=== PATIENT | male | born 1960 | race Caucasian/White ===

== ENCOUNTER 2022-10-03 14:56 | Inpatient (IN) | payer MEDICAID, SELFPAY ==
[2022-10-03 14:56] VITALS: BP 118/89; PULSE 138; RESP 18; TEMP 36.5; O2SAT 95; BMI 20.2
[2022-10-03 17:02] VITALS: PULSE 136
[2022-10-03] MEDS: LORazepam 2 MG/ML Syringe IV (17:04)
--- NOTE | 2022-10-03 17:14 | EDS_ITS ---
HPI History of Present Illness Chief Complaint: Substance Abuse Narrative Narrative: 61-year-old male presenting for detox from alcohol. He states he drinks about 3-1/2 gallons of vodka per day. He lives in an assisted living facility and is able to get out by his own alcohol. Sometimes his friends bite. He states he does have history of bone cancer and he is withdrawn cancer treatments. He just wants detox from alcohol and wants to stop drinking. He feels he is withdrawing. Last drink was yesterday. Patient reports history of withdrawal seizures in the past. PFSH PFSH Medical History Alcohol abuse BPH (benign prostatic hyperplasia) Chronic pain syndrome HTN (hypertension) Metastatic cancer to bone Tobacco use Allergy/AdvReac Type Severity Reaction Status Date / Time banana AdvReac PT UNSURE Verified 10/03/22 14:59 OF REACTION cyclobenzaprine AdvReac PT UNSURE Verified 10/03/22 14:59 [From Flexeril] OF REACTION haloperidol [From Haldol] AdvReac PT UNSURE Verified 10/03/22 14:59 OF REACTION pecan nut [pecans] AdvReac PT UNSURE Verified 10/03/22 14:59 OF REACTION walnut [walnuts] AdvReac PT UNSURE Verified 10/03/22 14:59 OF REACTION Family History (Updated 10/03/22 @ 19:[address] Danitza Paz MD) Mother Cancer Father Cancer Surgical History (Updated 10/03/22 @ 19:[address] Danitza Paz MD) History of back surgery S/P partial colectomy Social History (Updated 10/03/22 @ 19:[address] Danitza Paz MD) housing: assisted living facility Smoking Status: Current every day smoker tobacco type: cigarettes how long ago did patient quit smoking: Smoked heavy in the past, now down to 1 cigarette every 3 days. alcohol intake: current alcohol intake frequency: 3 or more drinks per day details: 3.5 gall 21 proof vodka daily. substance use type: does not use ROS ROS ED Constitutional Constitutional ED: Denies chills or fever(s) Eyes Eyes: Denies change in vision ENT ENT ED: Denies rhinorrhea or sore throat Cardiovascular Cardiovascular: Reports palpitations and racing heartbeat Respiratory/Chest Respiratory/Chest: Denies cough or dyspnea Gastrointestinal Gastrointestinal: Reports nausea Genitourinary Genitourinary ED: Denies dysuria Musculoskeletal Musculoskeletal: Denies back pain Integumentary Denies abscess or Abrasions Neurologic Neurologic: Denies headache(s) Psychiatric Psychiatric: Reports anxiety EXAM Physical Exam Const Vital Signs: 10/03/22 14:56 10/03/22 17:02 10/03/22 17:55 Temperature 97.7 F L 97.7 F L Temperature Source Temporal Temporal Pulse Rate 138 H 136 H 137 H Respiratory Rate 18 19 H Blood Pressure 118/89 H 124/94 H Blood Pressure Mean 98 104 Pulse Ox 95 93 Oxygen Delivery Method Room Air Nasal Cannula Oxygen Flow Rate (L/min) 3 Positive well nourished General Appearance ED: NAD; Negative for pallor HEENT Reports moist mucous membranes atraumatic Eyes PERRL and EOMs intact bilaterally Lymph Lymphatic: no lymphadenopathy noted Chest Wall inspection of chest normal and palpation of chest normal Resp normal respiratory effort and clear to auscultation bilaterally Cardio regular rhythm Rate: tachycardic GI soft to palpation Neuro oriented x3 and CN's II-XII intact bilaterally Motor Exam: strength 5/5 throughout Psych mental status grossly normal Skin General Skin Exam: Negative for jaundice or pallor MDM MDM MDM Narrative Medical decision making narrative: 61-year-old male presenting for alcohol detox. He does admit to history of metastatic bone cancer and states he is put back on chemotherapy of care. He does not want any treatment for this. Patient states he drinks 3-1/2 gallons of vodka daily. He gets assistance from his friends but is able to also leave and get it from his assisted living facility. Last drink was yesterday. He does appear to be jittery and anxious. He is tachycardic at 138. Patient given 2 mg Ativan. blood work was obtained which shows a 20,000 white count. Hemoglobin and hematocrit are stable. Platelets are normal. CMP shows normal bilirubin, AST, ALT, alkaline phosphatase. Glucose 171 without anion gap. Slightly hypokalemic at 3.4. Sodium slightly low at 132 which is likely due to elevation in glucose. Patient was given a liter of normal saline. Patient discussed with hospitalist for admission. Patient has elevated white blood cell count. Urinalysis was ordered as well as chest x-ray. These are pending on admission. Hospitalist is aware and will follow up on these. Patient had episode of nausea vomiting and was given Zofran. Impression: 1. Leukocytosis 2. EtOH withdrawal 3. Nausea/vomiting Lab Data Attestation: I reviewed the patient's lab results. Labs: Laboratory Results - last 24 hr 10/03/22 10/03/22 10/03/22 17:05 17:05 17:05 WBC 20.0 H RBC 4.38 L Hgb 13.4 Hct 40.9 MCV 93.4 MCH 30.6 MCHC 32.8 RDW Std Deviation 46.6 H RDW Coeff of Franci 13.7 Plt Count 370 MPV 9.0 Immature Gran % (Auto) 0.700 Neut % (Auto) 91.7 H Lymph % (Auto) 3.2 L [place] % (Auto) 3.6 Eos % (Auto) 0.6 Baso % (Auto) 0.2 Absolute Neuts (auto) 18.3 H Absolute Lymphs (auto) 0.64 L Nucleated RBC % 0 Sodium 132 L Potassium 3.4 L Chloride 92 L Carbon Dioxide 28.0 Anion Gap 12 BUN 22 H Creatinine 1.01 Estim Creat Clear Calc 84.05 Est GFR (MDRD) Af Amer 96 Est GFR (MDRD) Non-Af 79 BUN/Creatinine Ratio 21.8 H Glucose 171 H Calcium 7.7 L Phosphorus Magnesium Total Bilirubin 0.80 AST 21 ALT 32 Alkaline Phosphatase 81 Total Protein 5.8 L Albumin 2.5 L Globulin 3.3 Albumin/Globulin Ratio 0.8 L Urine Opiates Screen Urine Methadone Screen Ur Barbiturates Screen Ur Phencyclidine Scrn Ur Amphetamines Screen MDMA (Ecstasy) Screen U Benzodiazepines Scrn Urine Cocaine Screen U Cannabinoids Screen Ur Drug Screen Comment Ethyl Alcohol < 3.0 10/03/22 10/03/22 17:05 18:20 WBC RBC Hgb Hct MCV MCH MCHC RDW Std Deviation RDW Coeff of Franci Plt Count MPV Immature Gran % (Auto) Neut % (Auto) Lymph % (Auto) [place] % (Auto) Eos % (Auto) Baso % (Auto) Absolute Neuts (auto) Absolute Lymphs (auto) Nucleated RBC % Sodium Potassium Chloride Carbon Dioxide Anion Gap BUN Creatinine Estim Creat Clear Calc Est GFR (MDRD) Af Amer Est GFR (MDRD) Non-Af BUN/Creatinine Ratio Glucose Calcium Phosphorus 3.0 Magnesium 2.5 Total Bilirubin AST ALT Alkaline Phosphatase Total Protein Albumin Globulin Albumin/Globulin Ratio Urine Opiates Screen NEGATIVE Urine Methadone Screen NEGATIVE Ur Barbiturates Screen NEGATIVE Ur Phencyclidine Scrn NEGATIVE Ur Amphetamines Screen NEGATIVE MDMA (Ecstasy) Screen NEGATIVE U Benzodiazepines Scrn POSITIVE H Urine Cocaine Screen NEGATIVE U Cannabinoids Screen NEGATIVE Ur Drug Screen Comment Ethyl Alcohol Discharge Plan Disposition Disposition: Acute Care Hospital [facility] Discharge Date/Time: 10/03/22 19:20
[2022-10-03 17:29] LABS: Absolute Lymphocyte Count 0.64 X10^3/uL (0.83-4.51); Absolute Neutrophil Count 18.3 X10^3/uL (2.0-7.7); Basophil# 0.03 X10^3/uL; Basophil% 0.2 % (0-1); Eosinophil# 0.12 X10^3/uL; Eosinophils% 0.6 % (0-5); Hematocrit 40.9 % (40-54); Hemoglobin 13.4 g/dL (13.0-16.5); Lymphocyte # 0.64 X10^3/ul (0.83-4.51); Lymphocyte % 3.2 % (19-41); Mean Corp Hgb Conc 32.8 g/dL (32-36); Mean Corpuscular Hgb 30.6 pg (27.0-32.0); Mean Corpuscular Volume 93.4 fL (80-94); Monocyte# 0.72 X10^3/uL; Monocyte% 3.6 % (0-10); NRBC Flagged by Analyzer 0 % (0-5); Neutrophil # 18.31 X10^3/uL (2.7-7.7); Neutrophil % 91.7 % (47-70); Platelet Count 370 K/mm3 (150-450); RBC Distribution Width CV 13.7 % (11.6-14.6); RBC Distribution Width SD 46.6 fl (35.1-43.9); Red Blood Count 4.38 M/mm3 (4.6-6.2)
[2022-10-03 17:37] LABS: ALB/GLOB Ratio 0.8 RATIO (0.9-2.4); AST(SGOT) 21 U/L (15-37); Alanine Aminotransfer ALT/SGPT 32 U/L (16-61); Albumin, Serum 2.5 g/dL (3.2-5.0); Alkaline Phosphatase 81 U/L (45-117); Anion Gap 12 (5-15); BUN 22 mg/dL (7-18); BUN/Creat Ratio 21.8 RATIO (10-20); Calcium,Total 7.7 mg/dL (8.5-10.1); Chloride 92 mmol/L (98-107); Creatinine, Serum 1.01 mg/dL (0.70-1.30); EST Glomerular Filtration Rate 79 mL/min (>60); Est Glom Filt Rate - Afr Amer 96 mL/min (>60); Estimated Creatinine Clearance 84.05 ml/min; Globulin 3.3 g/dL (2.2-4.2); Glucose 171 mg/dL (74-106); Potassium 3.4 mmol/L (3.5-5.1); Protein, Total 5.8 g/dL (6.4-8.2); Sodium Level 132 mmol/L (136-145)
[2022-10-03] MEDS: 0.9% Normal Saline 1,000 ML 999 ML IV ×2 (17:54→20:07)
[2022-10-03 17:55] VITALS: BP 124/94; PULSE 137; RESP 19; TEMP 36.5; O2SAT 93
[2022-10-03 18:36] LABS: Alcohol, Blood (Medical)-Serum < 3.0 mg/dL
[2022-10-03 18:38] LABS: Amphetamine Urine VISTA NEGATIVE (<1000 ng/mL); Barbiturate Urine VISTA NEGATIVE (< 200 ng/mL); Benzodiazepine Urine VISTA POSITIVE (< 200 ng/mL); Cocaine Urine VISTA NEGATIVE (< 300 ng/mL); Ecstacy Urine VISTA NEGATIVE (< 500 ng/mL); Methadone Urine VISTA NEGATIVE (< 300 ng/mL); PCP Urine VISTA NEGATIVE (< 25 ng/mL); THC Urine VISTA NEGATIVE (< 50 ng/mL); Vista UDS pH Range 8
[2022-10-03 19:01] LABS: Magnesium 2.5 mg/dL (1.6-2.6)
--- NOTE | 2022-10-03 19:10 | RAD_ITS ---
INDICATION: cough, leukocytosis EXAMINATION/TECHNIQUE: X-RAY - XR Chest 2 Views COMPARISON: None. FINDINGS: Scattered patchy opacities in both lungs. Azygous fissure in the right upper lung. Bibasilar atelectasis. Tortuous and calcified thoracic aorta. The heart is mildly enlarged. Questionable trace left pleural effusion. No pneumothorax. Degenerative changes of the thoracic spine. RAD/Chest PA and Lateral IMPRESSION: Multifocal pneumonia with questionable trace left parapneumonic effusion.. Electronically Signed: Dorian Siu MD at 20:37 EST ,
[2022-10-03] MEDS: Ondansetron 4 MG/2 ML Vial IV (19:13)
[2022-10-03 19:31] VITALS: BMI 19.8
[2022-10-03 19:38] VITALS: BP 117/72; PULSE 133; RESP 20; TEMP 36.2; O2SAT 97
--- NOTE | 2022-10-03 19:48 | PCM.HP.STD ---
HPI - General General Date of Admission: 10/03/22 Date of Service: 10/03/22 Chief Complaint: Acute EtOH Withdrawal HPI Narrative The patient is a 61 y/o M w/ PMHx: Tobacco use previously heavy, Hx Colon CA considered in remission (per patient report), BPH, HTN, Metastatic cancer (Unclear exact type, patient reports Bone cancer with metastatic disease to spine, R shoulder, ribs) with associated Chronic pain syndrome noted to have been on narcotics prior last 06/2022 with report per patient that he was taken off these medications, GERD, EtOH Abuse worsened dramatically since his chronic narcotics were discontinued for his metastatic cancer who presents to the [facility] [place] on 10/03/22 w/ noted acute EtOH withdrawal, onset starting evening prior to presentation following last EtOH intake reported as noon the day prior with onset of nausea, tremors, agitation, tactile disturbances. Patient reports at least 3-1/2 gallons of vodka daily reportedly living in assisted living where he is able to bring in his own alcohol. Patient interested in attaining sober status with echocardiogram that with repeat echocardiogram at that time. In the ED patient passively does have some difficulties handling his secretions with coarse breath sounds bilaterally with suspected pneumonia, possibly aspiration given his difficulty handling secretions. Patient complains of diffuse discomfort especially to regions of metastatic disease, pain worse with activities but still present even if he is at rest, ranges from 5-10 out of 10 intermittently throughout the day and constant underlying base level. Discussed his current status and the reason for his increased alcohol consumption and he is amenable to evaluation for hospice program. Work-up in the ED included T97.7, heart rate 138, BP 118/89, respiratory rate 18, 95% on room air, CBC with RBC 20, hemoglobin 13.4, platelet 370 with left shift and lymphopenia, CMP with sodium 132, potassium 3.4, chloride 92, glucose 171, calcium 7.7 otherwise hepatic profile not marked appearing, UDS with positive benzodiazepine, ethyl alcohol less than 3. In the ED patient ministered IV Zofran 4 mg x 1 as well as Ativan 2 mg IV x1 and 1 L normal saline bolus. PFSH Medical History Alcohol abuse BPH (benign prostatic hyperplasia) Chronic pain syndrome HTN (hypertension) Metastatic cancer to bone Tobacco use Allergy/AdvReac Type Severity Reaction Status Date / Time banana AdvReac PT UNSURE Verified 10/03/22 14:59 OF REACTION cyclobenzaprine AdvReac PT UNSURE Verified 10/03/22 14:59 [From Flexeril] OF REACTION haloperidol [From Haldol] AdvReac PT UNSURE Verified 10/03/22 14:59 OF REACTION pecan nut [pecans] AdvReac PT UNSURE Verified 10/03/22 14:59 OF REACTION walnut [walnuts] AdvReac PT UNSURE Verified 10/03/22 14:59 OF REACTION Family History (Updated 10/03/22 @ 19:[address] Danitza Paz MD) Mother Cancer Father Cancer Surgical History (Updated 10/03/22 @ 19:[address] Danitza Paz MD) History of back surgery S/P partial colectomy Social History (Updated 10/03/22 @ 19:[address] Danitza Paz MD) housing: assisted living facility Smoking Status: Current every day smoker tobacco type: cigarettes how long ago did patient quit smoking: Smoked heavy in the past, now down to 1 cigarette every 3 days. alcohol intake: current alcohol intake frequency: 3 or more drinks per day details: 3.5 gall 21 proof vodka daily. substance use type: does not use ROS ROS Narrative Admission Review of Systems: CONSTITUTIONAL: No weight loss, fever, chills, + weakness or fatigue. HEENT: Eyes: No visual loss, blurred vision, double vision or yellow sclerae. Ears, Nose, Throat: No hearing loss, sneezing, congestion, runny nose or sore throat. SKIN: No rash or itching, lesions, wounds. CARDIOVASCULAR: No chest pain, chest pressure or chest discomfort, palpitations, edema, orthopnea, syncopal events. RESPIRATORY: + Cough with difficulty bringing up his sputum. Denies shortness of breath, wheezing or hemoptysis. GASTROINTESTINAL: + anorexia, nausea without vomiting, No diarrhea, abdominal pain, melena, BRBPR. GENITOURINARY: No dysuria, frequency, urgency or retention. NEUROLOGICAL: + Tactile disturbances, tremors, No headache, dizziness, syncope, paralysis, ataxia, numbness or tingling in the extremities, focal weakness, change in bowel or bladder control, seizure. MUSCULOSKELETAL: + muscle, back pain, joint pain or stiffness. HEMATOLOGIC: + anemia, bleeding or bruising. LYMPHATICS: No enlarged nodes. No history of splenectomy. PSYCHIATRIC: No history of depression or anxiety. ENDOCRINOLOGIC: No reports of sweating, cold or heat intolerance. No polyuria or polydipsia. ALLERGIES: No history of asthma, hives, eczema or rhinitis. Vital Signs Vital Signs Vital Signs: 10/03/22 14:56 10/03/22 17:02 10/03/22 17:55 Temperature 97.7 F L 97.7 F L Temperature Source Temporal Temporal Pulse Rate 138 H 136 H 137 H Respiratory Rate 18 19 H Blood Pressure 118/89 H 124/94 H Blood Pressure Mean 98 104 Pulse Ox 95 93 Oxygen Delivery Method Room Air Nasal Cannula Oxygen Flow Rate (L/min) 3 Weight Weight: 175 lb Body Mass Index (BMI) 20.2 Physical Exam Narrative Physical Examination: General: Awake, alert, oriented x 3 and cooperative, seated upright in the ED bed, fatigued, tremulous but did just receive IV Ativan, intermittent coughing during evaluation and some issues controlling his secretions Skin: Normal color, normal turgor, no icterus, no cyanosis except for very staged ecchymoses. HEENT: AT/NC, EOMI, PERRLA, dry MM, no carotid bruits or JVD noted, very difficult for patient to control his secretions during evaluation. Lungs: Coarse, notable upper airway sounds with inability to clear his throat, diminished bases, mildly increased respiratory rate, occasional end expiratory wheeze with PA and lateral requested Heart: Tachycardic with regular rhythm; no gallop, rub audible. Abdomen: Soft, thin habitus, NTTP, ND, hyperactive BS, + HM. Extremities: No cyanosis, no clubbing, no marked bilateral lower extremity peripheral pitting edema Neurological: Patient awake, alert, oriented as noted, cognitive function currently appears intact but is extremely tremulous and restless at this time, receiving IV Ativan; pupils equally reactive to light and accommodation, cranial nerves grossly normal, moving all 4 extremities, no focal deficits, strength severely global decrease secondary to acute presentation and suspect other ongoing medical issues Psychiatric: Affect appears fatigued, restless, tremulous, ill-appearing no acute evidence of depressive or anxiety feelings. Results Lab / Micro Data Result Diagrams: 10/03/22 17:05 10/03/22 17:05 Labs: Laboratory Results - last 24 hr 10/03/22 17:05: WBC 20.0 H, RBC 4.38 L, Hgb 13.4, Hct 40.9, MCV 93.4, MCH 30.6, MCHC 32.8, RDW Std Deviation 46.6 H, RDW Coeff of Franci 13.7, Plt Count 370, MPV 9.0, Immature Gran % (Auto) 0.700, Neut % (Auto) 91.7 H, Lymph % (Auto) 3.2 L, [place] % (Auto) 3.6, Eos % (Auto) 0.6, Baso % (Auto) 0.2, Absolute Neuts (auto) 18.3 H, Absolute Lymphs (auto) 0.64 L, Nucleated RBC % 0 10/03/22 17:05: Sodium 132 L, Potassium 3.4 L, Chloride 92 L, Carbon Dioxide 28.0, Anion Gap 12, BUN 22 H, Creatinine 1.01, Estim Creat Clear Calc 84.05, Est GFR (MDRD) Af Amer 96, Est GFR (MDRD) Non-Af 79, BUN/Creatinine Ratio 21.8 H, Glucose 171 H, Calcium 7.7 L, Total Bilirubin 0.80, AST 21, ALT 32, Alkaline Phosphatase 81, Total Protein 5.8 L, Albumin 2.5 L, Globulin 3.3, Albumin/Globulin Ratio 0.8 L 10/03/22 17:05: Ethyl Alcohol < 3.0 10/03/22 18:20: Ur Drug Screen Comment Assessment & Plan Assessment/Plan (1) Acute hyperactive alcohol withdrawal delirium: (2) S/P partial colectomy: PLAN: Plan The patient is a 61 y/o M w/ PMHx: Tobacco use previously heavy, Hx Colon CA considered in remission (per patient report), BPH, HTN, Metastatic cancer (Unclear exact type, patient reports Bone cancer with metastatic disease to spine, R shoulder, ribs) with associated Chronic pain syndrome noted to have been on narcotics prior last 06/2022 with report per patient that he was taken off these medications, GERD, EtOH Abuse worsened dramatically since his chronic narcotics were discontinued for his metastatic cancer who presents to the [facility] [place] on 10/03/22 w/ noted acute EtOH withdrawal, onset starting evening prior to presentation following last EtOH intake reported as noon the day prior with onset of nausea, tremors, agitation, tactile disturbances. #1. Acute EtOH Withdrawal: Will admit to MS given DNR-CC status, routine labs obtained in the ED upon presentation and notable for significant leukocytosis and mild electrolyte disturbances. Given interest in sobriety, will initiate and continue on protocol with taper course of Phenobarbital, scheduled gabapentin for seizure prophylaxis, as needed Catapres, Bentyl, Vistaril, IV fluids, IV antiemetics, Tylenol as needed for pain. Will consult Case management for assistance for transition to next level of rehabilitation care. Mag, phos pending. Maintain on CIWA protocol concurrently. #2. Leukocytosis with high suspicion for pneumonia, suspected aspiration especially given initial clinical evaluation: CXR PA and lateral requested, CBC with significant WBC elevation with left shift, urine was also requested but no urinary symptoms per his report, currently on room air but given sedate of medications likely may need oxygen therapy, maintain on oxygen with wean as tolerated to room air, will place on scheduled budesonide therapy, PRN albuterol, maintained on IV Zosyn with MRSA screen with addition of vancomycin for appropriate, HOB, IS parameters w/ pending sputum cultures, full viral panel and urine antigens as well as procalcitonin. PT/OT/case management as well as speech therapy consultations requested given suspicions. Bld Cx x 2 requested. #3. Metastatic cancer, reported his bone with disease to spine, right shoulder, ribs: Patient reporting remote disease onset with progressively worsening status, not on any regimen with DNRCC transition, previously on chronic narcotic therapy however he reports that he has been taken off of this since June and unfortunately has led to his increased alcohol consumption. Discussed frankly his current situation and patient is amenable to hospice consultation. Given the severity of his pain we will start oral narcotic. Agents at this time but he may need more aggressive regimen. Mag and Phos levels requested is noted. #4. Hyponatremia, mild, suspected hypovolemic: Admission sodium 132, chloride 92, will administer additional IV fluid bolus given also tachycardia which could certainly be associate with his acute alcohol withdrawal but also with infection, will continue on additional fluids following and repeat CMP in a.m. #5. Hypokalemia: Admission K+ 3.4, magnesium level request, supplementation given, repeat level in AM. #6. Hyperglycemia: Admission glucose 171, no diabetic history, possibly stress response, hemoglobin A1c requested. #7. Tobacco Abuse: Encouraged cessation, inpatient consultation per RT, NR if desired. #8. Reported history colon cancer: Patient reports status post resection with unclear exact treatments, not the best historian, reports that this cancer type is in remission #9. Severe protein calorie malnutrition: Evidenced by obvious muscle and fat loss, decreased oral intake, metastatic cancer, nutrition consulted. #10. GERD: We will continue patient home PPI. #11. BPH: We will continue patient home Flomax regimen once clarified #12. Hypertension: Given current hypovolemic presentation we will temporarily hold Lasix, PRN hydralazine. #13. DVT prophylaxis: Given hospice evaluation pending, DNRCC status will defer. #14. CODE status: Given patient history and presentation, discussed CODE status at length including difference between FULL code, DNR-CCA and DNR-CC status. Following discussions about the differences in these status, requested continued DNR-CC status. Amenable to hospice consultation. Advanced Care Planning Face to Face Time: 18 minutes. Admission Evaluation Time spent evaluating chart, patient history, patient evaluation, care planning and discussion with specialists: 75 minutes. Charges/Coding Visit Charges Inpatient E&M: 09304 Init Hosp L3 Procedures Hospitalists Procedures: 20697 Advncd Care Plan 30 Min
[2022-10-03] MEDS: Gabapentin 300 MG Capsule PO (20:05)
[2022-10-03] MEDS: Mag Hydrox/Al Hydrox/Simeth 30 ML UDC PO (20:05)
[2022-10-03] MEDS: Acetaminophen 325 MG Tablet 650 MG PO (20:06)
[2022-10-03] MEDS: oxyCODONE 5 MG Tablet PO (20:06)
[2022-10-03] MEDS: 0.9% Saline Lock 10 ML Syringe IV (20:07)
[2022-10-03] MEDS: Ondansetron 8 MG Tablet PO (20:07)
[2022-10-03] MEDS: Dicyclomine 10 MG Capsule 20 MG PO (20:34)
[2022-10-03] MEDS: hydrOXYzine PAM 25 MG Capsule 50 MG PO (20:35)
[2022-10-03 20:40] VITALS: PULSE 123; RESP 20
[2022-10-03] MEDS: Budesonide Respules 0.5 MG/2 ML AMPUL.NEB. INHALATION (20:40)
[2022-10-03] MEDS: Phenobarbital 32.4 MG Tablet 64.8 MG PO (20:43)
[2022-10-03] MEDS: 0.9% Normal Saline 1,000 ML 100 ML IV (20:44)
[2022-10-03 21:07] LABS: Hematocrit 39.4 % (40-54); Hemoglobin 12.7 g/dL (13.0-16.5)
[2022-10-03] MEDS: Potassium Chloride Oral Soln 20 MEQ/15 ML UDC 40 MEQ PO (23:46)
[2022-10-04] VITALS (11 sets, daily range): BP systolic 130–143; BP diastolic 73–94; PULSE 100–119; RESP 18–20; TEMP 36.1–37.9; O2SAT 94–98
--- NOTE | 2022-10-04 00:27 | NURSING ---
ICE PACKS TO [facility] FOR TEMP
[2022-10-04 00:36] LABS: Hematocrit 32.8 % (40-54); Hemoglobin 11.2 g/dL (13.0-16.5)
[2022-10-04] MEDS: hydrOXYzine PAM 25 MG Capsule 50 MG PO ×2 (03:35→09:10)
[2022-10-04] MEDS: Mag Hydrox/Al Hydrox/Simeth 30 ML UDC PO (03:35)
[2022-10-04] MEDS: Dicyclomine 10 MG Capsule 20 MG PO (03:35)
[2022-10-04] MEDS: oxyCODONE 5 MG Tablet PO ×4 (03:35→18:32)
[2022-10-04] MEDS: Acetaminophen 325 MG Tablet 650 MG PO (03:36)
[2022-10-04] MEDS: 0.9% Normal Saline 1,000 ML 100 ML IV ×2 (03:45→13:49)
[2022-10-04] MEDS: Phenobarbital 32.4 MG Tablet 64.8 MG PO ×5 (05:04→21:00)
[2022-10-04] MEDS: Menthol/Lanolin/Calamine/Znox 113 GM Tube 1 APPLIC TOPICAL ×2 (05:04→20:49)
[2022-10-04 05:20] LABS: Absolute Lymphocyte Count 0.98 X10^3/uL (0.83-4.51); Absolute Neutrophil Count 7.7 X10^3/uL (2.0-7.7); Basophil# 0.02 X10^3/uL; Basophil% 0.2 % (0-1); Hematocrit 32.9 % (40-54); Hemoglobin 10.6 g/dL (13.0-16.5); Lymphocyte # 0.98 X10^3/ul (0.83-4.51); Lymphocyte % 10.4 % (19-41); Mean Corp Hgb Conc 32.2 g/dL (32-36); Mean Corpuscular Hgb 30.9 pg (27.0-32.0); Mean Corpuscular Volume 95.9 fL (80-94); Mean Platelet Vol. 8.9 fl (6.2-12.0); Monocyte# 0.64 X10^3/uL; Monocyte% 6.8 % (0-10); NRBC Flagged by Analyzer 0 % (0-5); Neutrophil # 7.74 X10^3/uL (2.7-7.7); Neutrophil % 82.1 % (47-70); Platelet Count 277 K/mm3 (150-450); RBC Distribution Width CV 13.9 % (11.6-14.6); RBC Distribution Width SD 48.4 fl (35.1-43.9); Red Blood Count 3.43 M/mm3 (4.6-6.2); White Blood Count 9.4 K/mm3 (4.4-11.0)
[2022-10-04 05:48] LABS: ALB/GLOB Ratio 0.7 RATIO (0.9-2.4); AST(SGOT) 13 U/L (15-37); Alanine Aminotransfer ALT/SGPT 22 U/L (16-61); Albumin, Serum 1.9 g/dL (3.2-5.0); Alkaline Phosphatase 63 U/L (45-117); Anion Gap 7 (5-15); BUN 20 mg/dL (7-18); BUN/Creat Ratio 25.4 RATIO (10-20); Calcium,Total 7.2 mg/dL (8.5-10.1); Chloride 100 mmol/L (98-107); Creatinine, Serum 0.79 mg/dL (0.70-1.30); EST Glomerular Filtration Rate 106 mL/min (>60); Est Glom Filt Rate - Afr Amer 128 mL/min (>60); Estimated Creatinine Clearance 105.31 ml/min; Globulin 2.7 g/dL (2.2-4.2); Glucose 209 mg/dL (74-106); Potassium 4.3 mmol/L (3.5-5.1); Protein, Total 4.6 g/dL (6.4-8.2); Sodium Level 136 mmol/L (136-145)
[2022-10-04] MEDS: Budesonide Respules 0.5 MG/2 ML AMPUL.NEB. INHALATION ×2 (07:26→18:53)
[2022-10-04 07:38] LABS: Hemoglobin A1c 5.9 % (3.8-5.6)
[2022-10-04] MEDS: Ondansetron 8 MG Tablet PO ×2 (09:11→21:00)
[2022-10-04] MEDS: Thiamine Hydrochloride 100 MG Tablet PO (09:13)
[2022-10-04] MEDS: Folic Acid 1 MG Tablet PO (09:13)
[2022-10-04] MEDS: BMX LIQUID 180 ML 10 ML PO ×4 (09:45→21:06)
--- NOTE | 2022-10-04 10:33 | CASEMGMT ---
Social Work Telephone call to addiction therapies, Fabienne. Fabienne updated on patient admission. Jose DUKES, [place]
[2022-10-04] MEDS: LORazepam 1 MG Tablet 2 MG PO (11:26)
--- NOTE | 2022-10-04 12:32 | PN.HOSP_ITS ---
Subjective Subjective Patient seen and examined. He complained of pain in his back and spine, which he says is due to his metastatic cancer. He denies any fever, chills, cough, chest pain, palpitations, dizziness, nausea, vomiting or diarrhea. Review of systems is otherwise negative. He is a bit tachycardic. Objective Data Objective Data Vital Signs: Vital Signs Temp Pulse Resp BP Pulse Ox O2 Del Method O2 Flow Rate 98.2 F 109 H 18 134/82 H 96 Nasal Cannula 4 10/04/22 09:20 10/04/22 09:20 10/04/22 09:20 10/04/22 09:20 10/04/22 09:20 10/04/22 09:20 10/04/22 09:20 Oxygen Flow Rate (L/min) 4 Oxygen Delivery Method Nasal Cannula Weight: 171 lb 8 oz Body Mass Index (BMI) 19.8 Intake & Output: Intake and Output for Last 24 Hours 10/02/22 10/03/22 10/04/22 23:59 23:59 23:59 Intake Total 1999 921.17 / 921.17 Balance 1999 921.17 / 921.17 Lab / Micro Data Result Diagrams: 10/04/22 04:59 10/04/22 04:59 Labs: Laboratory Results - last 24 hr 10/03/22 17:05: WBC 20.0 H, RBC 4.38 L, Hgb 13.4, Hct 40.9, MCV 93.4, MCH 30.6, MCHC 32.8, RDW Std Deviation 46.6 H, RDW Coeff of Franci 13.7, Plt Count 370, MPV 9.0, Immature Gran % (Auto) 0.700, Neut % (Auto) 91.7 H, Lymph % (Auto) 3.2 L, [place] % (Auto) 3.6, Eos % (Auto) 0.6, Baso % (Auto) 0.2, Absolute Neuts (auto) 18.3 H, Absolute Lymphs (auto) 0.64 L, Nucleated RBC % 0 10/03/22 17:05: Sodium 132 L, Potassium 3.4 L, Chloride 92 L, Carbon Dioxide 28.0, Anion Gap 12, BUN 22 H, Creatinine 1.01, Estim Creat Clear Calc 84.05, Est GFR (MDRD) Af Amer 96, Est GFR (MDRD) Non-Af 79, BUN/Creatinine Ratio 21.8 H, Glucose 171 H, Calcium 7.7 L, Total Bilirubin 0.80, AST 21, ALT 32, Alkaline Phosphatase 81, Total Protein 5.8 L, Albumin 2.5 L, Globulin 3.3, Albumin/Globulin Ratio 0.8 L 10/03/22 17:05: Ethyl Alcohol < 3.0 10/03/22 17:05: Phosphorus 3.0, Magnesium 2.5 10/03/22 18:20: Urine Opiates Screen NEGATIVE, Urine Methadone Screen NEGATIVE, Ur Barbiturates Screen NEGATIVE, Ur Phencyclidine Scrn NEGATIVE, Ur Amphetamines Screen NEGATIVE, MDMA (Ecstasy) Screen NEGATIVE, U Benzodiazepines Scrn POSITIVE H, Urine Cocaine Screen NEGATIVE, U Cannabinoids Screen NEGATIVE, Ur Drug Screen Comment 10/03/22 19:59: Procalcitonin 0.20 H 10/03/22 19:59: Blood Type B NEGATIVE, Antibody Screen NEGATIVE 10/03/22 19:59: Hgb 12.7 L, Hct 39.4 L 10/04/22 00:30: Hgb 11.2 L, Hct 32.8 L 10/04/22 04:59: WBC 9.4, RBC 3.43 L, Hgb 10.6 L, Hct 32.9 L, MCV 95.9 H, MCH 30.9, MCHC 32.2, RDW Std Deviation 48.4 H, RDW Coeff of Franci 13.9, Plt Count 277, MPV 8.9, Immature Gran % (Auto) 0.500, Neut % (Auto) 82.1 H, Lymph % (Auto) 10.4 L, [place] % (Auto) 6.8, Eos % (Auto) 0.0, Baso % (Auto) 0.2, Absolute Neuts (auto) 7.7, Absolute Lymphs (auto) 0.98, Nucleated RBC % 0 10/04/22 04:59: Sodium 136, Potassium 4.3, Chloride 100, Carbon Dioxide 29.0, Anion Gap 7, BUN 20 H, Creatinine 0.79, Estim Creat Clear Calc 105.31, Est GFR (MDRD) Af Amer 128, Est GFR (MDRD) Non-Af 106, BUN/Creatinine Ratio 25.4 H, Glucose 209 H, Calcium 7.2 L, Total Bilirubin 0.70, AST 13 L, ALT 22, Alkaline Phosphatase 63, Total Protein 4.6 L, Albumin 1.9 L, Globulin 2.7, Albumin/Globulin Ratio 0.7 L 10/04/22 04:59: Hemoglobin A1c 5.9 H Micro: Microbiology 10/03/22 20:30 Interface Orders Respiratory Panel (PCR) - Final Radiography Diagnostic Testing: Radiology Impression Chest X-Ray 10/03/22 19:10 IMPRESSION: Multifocal pneumonia with questionable trace left parapneumonic effusion.. Electronically Signed: Dorian Siu MD at 20:37 EST , Physical Exam Const alert and oriented x3 Constitutional Narrative: in mild distress HEENT head/scalp atraumatic and moist oral mucous membranes Head and Scalp: normocephalic Mouth: oral and palatal mucosa normal Eyes PERRL, EOMs intact bilaterally and conjunctivae normal Neck no lymphadenopathy and supple Resp Resp Narrative: mildly diminished breath sounds bibasally, no wheezes or crackles. Cardio S1 normal heart sound, S2 normal heart sound and no murmurs Cardio Narrative: mildly tachycardic GI normal to inspection, nondistended, normoactive bowel sounds, soft to palpation, non-tender and non-distended Extremity normal to inspection and no clubbing, cyanosis or edema Neuro oriented x3, CN's II-XII intact bilaterally, moves all extremities and no focal motor deficits Sensorium / Orientation: awake and alert Psych Psych Narrative: anxious Assessment & Plan Assessment/Plan (1) Acute hyperactive alcohol withdrawal delirium: PLAN: Plan #Acute alcohol withdrawal * on alcohol withdrawal protocol with phenobarbital * monitor CIWA score * thiamine, folic acid and multivite * adjunctive meds for symptomatic relief * #Hyponatremia: resolved. Na is 136 #Hypokalemia: resolved #Dysphagia * speech therapy on board. * diet modified as per speech therapy recommendations * #Aspiration pneumonia * had elevated wbc * concern for aspiration due to patient vomiting * CXR showed multifocal pneumonia with questionable trace parapneumonic effusion * on IV zosyn. * breathing treatment with bronchodilators. * aspiration precautions * #History of metastatic colon cancer * has mets to the spine. Complains of pain * on oral narcotic pain meds * #GERD: on PPI #BPH: on flomax #Hypertension; BP meds held as he was hypotensive on admission. Will resume Charges/Coding Visit Charges Inpatient E&M: 78096 Subs Hosp L3 Reason for Visit Reason for Visit: Diagnoses Alcohol use, unspecified with withdrawal delirium (10/03/22) Acquired absence of other specified parts of digestive tract (10/03/22)
[2022-10-04] MEDS: Furosemide 20 MG Tablet PO (13:04)
[2022-10-04] MEDS: Albuterol 2.5 MG/3 ML VIAL.NEB. INHALATION ×2 (13:36→18:53)
[2022-10-04] MEDS: Ensure Plus High Protein 120 ML LIQUID PO ×3 (13:55→21:00)
[2022-10-04] MEDS: LORazepam 2 MG/ML Syringe IV ×3 (14:43→21:01)
[2022-10-04] MEDS: 0.9% Saline Lock 10 ML Syringe IV ×3 (14:43→21:13)
[2022-10-04 14:51] LABS: Bacteria 0 SEEN /hpf (None Seen); Mucous, Urine 0 SEEN /hpf (<or=2+); Squamous Epithelial Cells - UA 0 SEEN /hpf (0-5)
[2022-10-04 14:59] LABS: Color, Urine Yellow (Yellow); Glucose, Dipstick Normal (Normal); Ketone-Dipstick Negative (Negative); Leukocyte Esterase-Dipstick 25 /ul (Negative); Nitrite-Dipstick Negative (Negative); Occult Blood-Urine 250 /ul (Negative); Protein-Dipstick 100 mg/dl (Negative); Specific Gravity, Urine 1.015 (1.002-1.030); Urine Bilirubin Dipstick Negative (Negative); Urine Clarity Clear (Clear); Urine Urobilinogen Normal (Normal); Urine pH 6.5 (5.0 - 8.0)
[2022-10-04 15:13] LABS: White Blood Cells 0-5 SEEN /hpf (0-5)
[2022-10-04 15:14] LABS: Red Blood Cells-Urine 10-25 SEEN /hpf (0-5)
--- NOTE | 2022-10-04 15:15 | NURSING ---
Ativan ordered - [facility] protocol. Pt requested IV ativan d/t nausea. 2mg dose given at 1443.
[2022-10-04 16:01] LABS: M R Staph aureus DNA By PCR Negative (Negative); Probe Check PASS; Specimen Processing Control PASS
[2022-10-04] MEDS: Tamsulosin HCl 0.4 MG Capsule PO (17:30)
[2022-10-04] MEDS: Sucralfate 1 GM Tablet PO ×2 (17:30→21:02)
[2022-10-04] MEDS: Juven (unflavored) Packet 1 PACKET PO (17:30)
--- NOTE | 2022-10-04 18:25 | ADDICTION ---
TW attempted to meet with pt but he was asleep and not able to be roused.
[2022-10-04] MEDS: Mirtazapine 30 MG Tablet PO (21:01)
[2022-10-05] VITALS (9 sets, daily range): BP systolic 132–156; BP diastolic 70–97; PULSE 98–122; RESP 18–20; TEMP 36.3–37; O2SAT 96–97
[2022-10-05] MEDS: 0.9% Normal Saline 1,000 ML 100 ML IV (00:06)
[2022-10-05] MEDS: hydrOXYzine PAM 25 MG Capsule 50 MG PO ×3 (00:14→18:01)
[2022-10-05] MEDS: Acetaminophen 325 MG Tablet 650 MG PO (00:14)
[2022-10-05] MEDS: oxyCODONE 5 MG Tablet PO ×5 (00:15→20:09)
[2022-10-05] MEDS: Phenobarbital 32.4 MG Tablet 64.8 MG PO ×6 (00:15→20:09)
[2022-10-05] MEDS: LORazepam 1 MG Tablet 2 MG PO ×5 (00:15→18:40)
[2022-10-05] MEDS: BMX LIQUID 180 ML 10 ML PO (00:24)
--- NOTE | 2022-10-05 02:53 | NURSING ---
Patient put on his call light. This RN could not understand him, so walked back to his room. He was snoring. Appears comfortable.
[2022-10-05] MEDS: Sucralfate 1 GM Tablet PO ×4 (05:09→21:20)
[2022-10-05] MEDS: Menthol/Lanolin/Calamine/Znox 113 GM Tube 1 APPLIC TOPICAL (05:14)
[2022-10-05] MEDS: LORazepam 2 MG/ML Syringe IV ×3 (05:35→23:55)
[2022-10-05] MEDS: 0.9% Saline Lock 10 ML Syringe IV (05:39)
[2022-10-05] MEDS: Albuterol 2.5 MG/3 ML VIAL.NEB. INHALATION ×3 (07:06→18:45)
[2022-10-05] MEDS: Budesonide Respules 0.5 MG/2 ML AMPUL.NEB. INHALATION ×2 (07:06→18:45)
[2022-10-05] MEDS: Juven (unflavored) Packet 1 PACKET PO (07:41)
[2022-10-05] MEDS: Pantoprazole Sodium 40 MG Tablet PO (07:42)
[2022-10-05] MEDS: Thiamine Hydrochloride 100 MG Tablet PO (07:42)
[2022-10-05] MEDS: Folic Acid 1 MG Tablet PO (07:42)
[2022-10-05] MEDS: Ondansetron 8 MG Tablet PO ×3 (07:42→21:20)
[2022-10-05] MEDS: dexAMETHasone 4 MG Tablet PO (07:42)
[2022-10-05] MEDS: Ensure Plus High Protein 120 ML LIQUID PO ×3 (07:42→16:49)
[2022-10-05] MEDS: Furosemide 20 MG Tablet PO (07:42)
[2022-10-05] MEDS: Potassium Chloride Oral Tablet 10 MEQ PO (07:42)
[2022-10-05 10:10] LABS: Absolute Lymphocyte Count 1.62 X10^3/uL (0.83-4.51); Absolute Neutrophil Count 4.6 X10^3/uL (2.0-7.7); Basophil# 0.03 X10^3/uL; Basophil% 0.5 % (0-1); Eosinophil# 0.02 X10^3/uL; Eosinophils% 0.3 % (0-5); Hemoglobin 9.6 g/dL (13.0-16.5); Lymphocyte # 1.62 X10^3/ul (0.83-4.51); Lymphocyte % 24.4 % (19-41); Mean Corpuscular Hgb 30.9 pg (27.0-32.0); Mean Corpuscular Volume 99.7 fL (80-94); Mean Platelet Vol. 9.1 fl (6.2-12.0); Monocyte# 0.36 X10^3/uL; Monocyte% 5.4 % (0-10); NRBC Flagged by Analyzer 0 % (0-5); Neutrophil # 4.55 X10^3/uL (2.7-7.7); Neutrophil % 68.6 % (47-70); Platelet Count 228 K/mm3 (150-450); RBC Distribution Width CV 13.8 % (11.6-14.6); RBC Distribution Width SD 50.4 fl (35.1-43.9); Red Blood Count 3.11 M/mm3 (4.6-6.2); White Blood Count 6.6 K/mm3 (4.4-11.0)
[2022-10-05 10:36] LABS: Anion Gap 8 (5-15); BUN 14 mg/dL (7-18); Calcium,Total 7.8 mg/dL (8.5-10.1); Chloride 102 mmol/L (98-107); Creatinine, Serum 0.82 mg/dL (0.70-1.30); EST Glomerular Filtration Rate 100 mL/min (>60); Est Glom Filt Rate - Afr Amer 121 mL/min (>60); Estimated Creatinine Clearance 101.46 ml/min; Glucose 120 mg/dL (74-106); Potassium 3.2 mmol/L (3.5-5.1); Sodium Level 139 mmol/L (136-145)
--- NOTE | 2022-10-05 11:38 | PN.HOSP_ITS ---
Reason for Visit Reason for Visit: Diagnoses Alcohol use, unspecified with withdrawal delirium (10/03/22) Acquired absence of other specified parts of digestive tract (10/03/22) Subjective Subjective Patient seen and examined. He states he feels better today. The Ativan really helped his withdrawal symptoms. He is coughing and bringing up greenish sputum. He denies any fever or chills and review of systems otherwise negative. He has remained hemodynamically stable and is on 2 L of oxygen now. Objective Data Objective Data Vital Signs: Vital Signs Temp Pulse Resp BP Pulse Ox O2 Del Method O2 Flow Rate 97.7 F L 98 18 132/86 H 96 Nasal Cannula 2 10/05/22 08:58 10/05/22 08:58 10/05/22 08:58 10/05/22 08:58 10/05/22 08:58 10/05/22 08:59 10/05/22 08:59 Oxygen Flow Rate (L/min) 2 Oxygen Delivery Method Nasal Cannula Weight: 171 lb 8 oz Body Mass Index (BMI) 19.8 Intake & Output: Intake and Output for Last 24 Hours 10/03/22 10/04/22 10/05/22 23:59 23:59 23:59 Intake Total 1999 3205.75 / 3205.75 1804.38 / 1804.38 Output Total 830 / 1430 2100 / 2100 Balance 1999 2375.75 / 1775.75 -295.62 / -295.62 Lab / Micro Data Result Diagrams: 10/05/22 08:53 10/05/22 08:35 Labs: Laboratory Results - last 24 hr 10/04/22 14:10: MRSA (PCR) Negative 10/04/22 14:30: Urine Color Yellow, Urine Clarity Clear, Urine pH 6.5, Ur Specific [place] 1.015, Urine Protein 100 H, Urine Glucose (UA) Normal, Urine Ketones Negative, Urine Occult Blood 250 H, Urine Nitrite Negative, Urine Bilirubin Negative, Urine Urobilinogen Normal, Ur Leukocyte Esterase 25 H, Urine RBC 10-25 SEEN, Urine WBC 0-5 SEEN, Ur Squamous Epith Cells 0 SEEN, Urine Bacteria 0 SEEN, Urine Mucus 0 SEEN 10/05/22 08:35: Sodium 139, Potassium 3.2 L, Chloride 102, Carbon Dioxide 29.0, Anion Gap 8, BUN 14, Creatinine 0.82, Estim Creat Clear Calc 101.46, Est GFR (MDRD) Af Amer 121, Est GFR (MDRD) Non-Af 100, BUN/Creatinine Ratio 17.0, Glucose 120 H, Calcium 7.8 L 10/05/22 08:53: WBC 6.6, RBC 3.11 L, Hgb 9.6 L, Hct 31.0 L, MCV 99.7 H, MCH 30.9 , MCHC 31.0 L, RDW Std Deviation 50.4 H, RDW Coeff of Franci 13.8, Plt Count 228, MPV 9.1, Immature Gran % (Auto) 0.800, Neut % (Auto) 68.6, Lymph % (Auto) 24.4, [place] % (Auto) 5.4, Eos % (Auto) 0.3, Baso % (Auto) 0.5, Absolute Neuts (auto) 4.6, Absolute Lymphs (auto) 1.62, Nucleated RBC % 0 Micro: Microbiology 10/04/22 14:30 Urine, Random Urine Culture - Preliminary Culture exhibits no growth. 10/04/22 03:45 Sputum, Expectorated/Coughed Gram Stain - Final 10/04/22 03:45 Sputum, Expectorated/Coughed Respiratory Culture - Preliminary GNR lactose discharge planner 10/04/22 14:30 Urine, Random Legionella Antigen - Final 10/04/22 14:30 Urine, Random Streptococcus pneumoniae Antigen (M - Final 10/03/22 20:30 Interface Orders Respiratory Panel (PCR) - Final Physical Exam Const alert, oriented x3 and no apparent distress HEENT head/scalp atraumatic and moist oral mucous membranes Head and Scalp: normocephalic Mouth: oral and palatal mucosa normal Eyes PERRL, EOMs intact bilaterally and conjunctivae normal Neck no lymphadenopathy and supple Resp Resp Narrative: mildly diminished breath sounds bibasally, no wheezes or crackles. Cardio regular rate, regular rhythm, S1 normal heart sound, S2 normal heart sound and no murmurs GI normal to inspection, nondistended, normoactive bowel sounds, soft to palpation, non-tender and non-distended Extremity normal to inspection, full ROM and no clubbing, cyanosis or edema Neuro oriented x3, CN's II-XII intact bilaterally, moves all extremities and no focal motor deficits Sensorium / Orientation: awake and alert Psych Psych Narrative: anxious Assessment & Plan Assessment/Plan (1) Acute hyperactive alcohol withdrawal delirium: PLAN: Plan #Acute alcohol withdrawal * on alcohol withdrawal protocol with phenobarbital * monitor CIWA score * thiamine, folic acid and multivite * adjunctive meds for symptomatic relief * #Hyponatremia: resolved. #Hypokalemia: resolved #Dysphagia * speech therapy on board. * diet modified as per speech therapy recommendations * #Aspiration pneumonia * wbc trended down and normalised * concern for aspiration due to patient vomiting * CXR showed multifocal pneumonia with questionable trace parapneumonic effusion * on IV zosyn. * breathing treatment with bronchodilators. * aspiration precautions * #History of metastatic colon cancer * has mets to the spine. Complains of pain * on oral narcotic pain meds. Also on dexamethasone * #GERD: on PPI #BPH: on flomax #Hypertension; BP meds held as he was hypotensive on admission. Will resume DVT prophylaxis; start lovenox Charges/Coding Visit Charges Inpatient E&M: 89325 Subs Hosp L2
[2022-10-05] MEDS: Enoxaparin 40 MG/0.4 ML Syringe SC (11:57)
--- NOTE | 2022-10-05 14:13 | CASEMGMT ---
Social Work SW met with pt and introduced self and role of SW. Pt sitting up in bed, Alert and oriented x3 and willing to speak with SW. Pt states that he currently lives at [facility] and has been there for the past 8 years. Pt states that he considers this his home and the most important thing to him is that he can return there. Pt states that he was sneaking alcohol into his room and that staff at [facility] had had enough and told him he needed to get help or pt thinks they would possibly kick him out. Pt states there is a 30 day bedhold on his room and therefore he is willing to do anything he needs to do for alcohol recovery as long as he can be back to the ECF by that 30 day porsha. SW spoke with pt in regards to Hospice consult. Pt states that he was on hospice services previously and I blew that up. When asked to explain that, pt says that he became frustrated and stopped taking meds he was given and it was a mutual decision to stop services. Pt states he would be open to hospice again but is questioning if they would take him back. Pt states that he does not want hospice in this are but would want a [facility] that services [facility]. Pt stating that alcohol rehab is priority and not hospice care. Phone call to [facility] and left requesting return call. CHRISTAL spoke with Linda Addiction Counselor and updated on pt situation. Charge nurse updated and hospice consult on hold at this time. Discharge plan: Pending meeting with addiction counselor ANDRA Schafer
--- NOTE | 2022-10-05 15:44 | CASEMGMT ---
Social Work Return call from Nakia, admissions at [facility]. Nakia confirms pt is in the retirement nursing facility, not assisted living. There is a 24 day bed hold that started 10/04/22, pt would need to return to facility by 10/27/22. Nakia states that she is uncertain if pt will be accepted back to facility due to drinking and this will be up to linux server administrator. Pt did have services through [facility] prior to 2020 but Nakia unable to say when discharge was. She states pt was discharged from hospice services due to drinking and holding pain meds. SW will await evaluation by addiction medicine to determine discharge plan. [facility] was pt retirement home. This SW is questioning if facility can deny pt return without a 30 day notice. CHRISTAL will continue to follow for discharge planning. ANDRA Burrows
[2022-10-05] MEDS: Dicyclomine 10 MG Capsule 20 MG PO (16:02)
--- NOTE | 2022-10-05 16:31 | CHAPLAIN ---
Type of Pastoral Visit _x__ Initial Visit ___ Follow-up Visit ___ On-call Visit ___ General Patient Visit ___ Spiritual Assessment ___ Family Conference ___ Bereavement ___ Rapid Response ___ Code Blue ___ Other (describe below) Pastoral Care Referral From _x__ Patient ___ Family ___ Nurse ___ Physician ___ Gmat Instructor ___ Hat Lining Paster ___ Other (describe below) Sacrament/Intervention _x__ Active listening ___ Anointing ___ Bahai ___ Bereavement ___ Communion _x__ Flor exploration ___ _x__ Life review _x__ Prayer ___ Reconciliation ___ Sacrament of Sick _x__ Supportive presence ___ Wedding ___ Other (describe below) Pastoral Comments patient is eating lunch but invites this recovery assistant to sit and talk; pt gives some life review and his perspective on flor which was non practicing Anabaptism to now agnostic; pt is open to spiritual care support however and prayer; time to sit and listen given
[2022-10-05] MEDS: Tamsulosin HCl 0.4 MG Capsule PO (16:46)
[2022-10-05] MEDS: Mirtazapine 30 MG Tablet PO (21:20)
[2022-10-06] VITALS (12 sets, daily range): BP systolic 104–141; BP diastolic 75–96; PULSE 89–116; RESP 15–22; TEMP 36.4–37.7; O2SAT 94–97
[2022-10-06] MEDS: oxyCODONE 5 MG Tablet PO ×4 (03:53→17:49)
[2022-10-06 05:31] LABS: Absolute Lymphocyte Count 1.75 X10^3/uL (0.83-4.51); Absolute Neutrophil Count 3.5 X10^3/uL (2.0-7.7); Basophil# 0.04 X10^3/uL; Basophil% 0.7 % (0-1); Eosinophil# 0.09 X10^3/uL; Eosinophils% 1.5 % (0-5); Hematocrit 28.5 % (40-54); Lymphocyte # 1.75 X10^3/ul (0.83-4.51); Mean Corp Hgb Conc 31.6 g/dL (32-36); Mean Corpuscular Hgb 30.9 pg (27.0-32.0); Mean Corpuscular Volume 97.9 fL (80-94); Mean Platelet Vol. 9.1 fl (6.2-12.0); Monocyte# 0.35 X10^3/uL; NRBC Flagged by Analyzer 0 % (0-5); Neutrophil # 3.54 X10^3/uL (2.7-7.7); Neutrophil % 60.6 % (47-70); Platelet Count 222 K/mm3 (150-450); RBC Distribution Width CV 13.4 % (11.6-14.6); RBC Distribution Width SD 48.3 fl (35.1-43.9); Red Blood Count 2.91 M/mm3 (4.6-6.2); White Blood Count 5.8 K/mm3 (4.4-11.0)
[2022-10-06] MEDS: Sucralfate 1 GM Tablet PO ×4 (05:41→20:55)
[2022-10-06] MEDS: Ondansetron 8 MG Tablet PO ×2 (05:41→07:22)
[2022-10-06] MEDS: Phenobarbital 32.4 MG Tablet 64.8 MG PO ×2 (05:41→10:16)
[2022-10-06 05:59] LABS: Anion Gap 7 (5-15); BUN 8 mg/dL (7-18); Calcium,Total 8.1 mg/dL (8.5-10.1); Chloride 102 mmol/L (98-107); EST Glomerular Filtration Rate 104 mL/min (>60); Est Glom Filt Rate - Afr Amer 126 mL/min (>60); Estimated Creatinine Clearance 103.99 ml/min; Glucose 140 mg/dL (74-106); Potassium 2.9 mmol/L (3.5-5.1); Sodium Level 138 mmol/L (136-145)
[2022-10-06] MEDS: Albuterol 2.5 MG/3 ML VIAL.NEB. INHALATION ×4 (07:18→18:59)
[2022-10-06] MEDS: Budesonide Respules 0.5 MG/2 ML AMPUL.NEB. INHALATION ×2 (07:18→19:00)
[2022-10-06] MEDS: dexAMETHasone 4 MG Tablet PO (07:22)
[2022-10-06] MEDS: Thiamine Hydrochloride 100 MG Tablet PO (07:22)
[2022-10-06] MEDS: Juven (unflavored) Packet 1 PACKET PO ×2 (07:22→16:13)
[2022-10-06] MEDS: Pantoprazole Sodium 40 MG Tablet PO (07:22)
[2022-10-06] MEDS: Potassium Chloride Oral Tablet 10 MEQ PO (07:22)
[2022-10-06] MEDS: Folic Acid 1 MG Tablet PO (07:22)
[2022-10-06] MEDS: Furosemide 20 MG Tablet PO (07:22)
[2022-10-06] MEDS: Enoxaparin 40 MG/0.4 ML Syringe SC (07:23)
[2022-10-06] MEDS: LORazepam 1 MG Tablet 2 MG PO ×4 (07:27→21:05)
[2022-10-06] MEDS: Acetaminophen 325 MG Tablet 650 MG PO ×2 (07:27→16:17)
[2022-10-06] MEDS: Ensure Plus High Protein 120 ML LIQUID PO ×4 (07:33→20:55)
[2022-10-06] MEDS: BMX LIQUID 180 ML 20 ML PO (07:36)
[2022-10-06] MEDS: Potassium Chloride 10mEq/100mL 10 MEQ/100 ML IV.SOLN. 100 MEQ IV BOLUS ×4 (08:41→12:00)
--- NOTE | 2022-10-06 09:29 | ADDICTION ---
This SW went to engage with pt, but he was sleeping. Several attempts to rouse, but were unsuccessful. He was snoring loudly. Initial thoughts could be refer to outpatient counseling services at [facility] in [place] if he's allowed to return to facility.
[2022-10-06] MEDS: Menthol/Lanolin/Calamine/Znox 113 GM Tube 1 APPLIC TOPICAL ×2 (09:52→20:55)
[2022-10-06] MEDS: hydrOXYzine PAM 25 MG Capsule 50 MG PO ×3 (10:15→17:50)
--- NOTE | 2022-10-06 11:04 | PN.HOSP_ITS ---
Reason for Visit Reason for Visit: Diagnoses Alcohol use, unspecified with withdrawal delirium (10/03/22) Acquired absence of other specified parts of digestive tract (10/03/22) Subjective Subjective Patient seen and examined. He was quite lethargic. Per his nurse, he had just received ativan. He was able to awake and answer questions. He denied any fever, chills, cough, chest pain, palpitations, dizzines, nausea and vomiting or diarrhea. Review of systems is otherwise negative. Objective Data Objective Data Vital Signs: Vital Signs Temp Pulse Resp BP Pulse Ox O2 Del Method O2 Flow Rate 97.8 F 109 H 16 121/89 H 97 Nasal Cannula 2 10/06/22 10:35 10/06/22 10:35 10/06/22 10:35 10/06/22 10:35 10/06/22 10:35 10/06/22 10:35 10/06/22 10:35 Oxygen Flow Rate (L/min) 2 Oxygen Delivery Method Nasal Cannula Weight: 171 lb 8 oz Body Mass Index (BMI) 19.8 Intake & Output: Intake and Output for Last 24 Hours 10/04/22 10/05/22 10/06/22 23:59 23:59 23:59 Intake Total 3205.75 / 3205.75 1898.34 / 2098.34 900 / 900 Output Total 830 / 1430 2100 / 2100 Balance 2375.75 / 1775.75 -201.66 / -1.66 900 / 900 Lab / Micro Data Result Diagrams: 10/06/22 04:30 10/06/22 04:30 Labs: Laboratory Results - last 24 hr 10/06/22 04:30: WBC 5.8, RBC 2.91 L, Hgb 9.0 L, Hct 28.5 L, MCV 97.9 H, MCH 30.9, MCHC 31.6 L, RDW Std Deviation 48.3 H, RDW Coeff of Franci 13.4, Plt Count 222, MPV 9.1, Immature Gran % (Auto) 1.200 H, Neut % (Auto) 60.6, Lymph % (Auto) 30.0, [place] % (Auto) 6.0, Eos % (Auto) 1.5, Baso % (Auto) 0.7, Absolute Neuts (auto) 3.5, Absolute Lymphs (auto) 1.75, Nucleated RBC % 0 10/06/22 04:30: Sodium 138, Potassium 2.9 L, Chloride 102, Carbon Dioxide 29.0, Anion Gap 7, BUN 8, Creatinine 0.80, Estim Creat Clear Calc 103.99, Est GFR (MDRD) Af Amer 126, Est GFR (MDRD) Non-Af 104, BUN/Creatinine Ratio 10.0, Glucose 140 H, Calcium 8.1 L Micro: Microbiology 10/04/22 14:30 Urine, Random Urine Culture - Final Culture exhibits no growth. 10/03/22 23:19 Blood Culture (Wb) - Right Hand Blood Culture - Preliminary No growth in 48 hours. 10/03/22 19:59 Blood Culture (Wb) - Anticubital Right Blood Culture - Preliminary No growth in 48 hours. 10/04/22 03:45 Sputum, Expectorated/Coughed Gram Stain - Final 10/04/22 03:45 Sputum, Expectorated/Coughed Respiratory Culture - Final Escherichia coli Haemophilus influenzae 10/04/22 14:30 Urine, Random Legionella Antigen - Final 10/04/22 14:30 Urine, Random Streptococcus pneumoniae Antigen (M - Final 10/03/22 20:30 Interface Orders Respiratory Panel (PCR) - Final Physical Exam Const no apparent distress Constitutional Narrative: lethargic Orientation / Consciousness: lethargic HEENT head/scalp atraumatic and moist oral mucous membranes Head and Scalp: normocephalic Mouth: oral and palatal mucosa normal Eyes PERRL, EOMs intact bilaterally and conjunctivae normal Neck no lymphadenopathy and supple Resp Resp Narrative: mildly diminished breath sounds bibasally, no wheezes or crackles. Down to 2l of oxygen. Cardio regular rate, regular rhythm, S1 normal heart sound, S2 normal heart sound and no murmurs Cardio Narrative: still mildly tachycardic GI normal to inspection, nondistended, normoactive bowel sounds, soft to palpation, non-tender and non-distended Extremity normal to inspection, full ROM and no clubbing, cyanosis or edema Neuro CN's II-XII intact bilaterally, moves all extremities and no focal motor deficits Neuro Narrative: lethargic Psych Psych Narrative: lethargic Assessment & Plan Assessment/Plan (1) Acute hyperactive alcohol withdrawal delirium: PLAN: Plan #Acute alcohol withdrawal * on alcohol withdrawal protocol with phenobarbital * monitor CIWA score * thiamine, folic acid and multivite * adjunctive meds for symptomatic relief * #Hyponatremia: resolved. #Hypokalemia: potassium is 2.9 today. Will replace and trend. #Dysphagia * speech therapy on board. * diet modified as per speech therapy recommendations * #Aspiration pneumonia * wbc trended down and normalised * concern for aspiration due to patient vomiting * CXR showed multifocal pneumonia with questionable trace parapneumonic effusion * on IV zosyn. * breathing treatment with bronchodilators. * aspiration precautions * sputum culture grew E coli and H influenzae. Will continue IV zosyn. * #History of metastatic colon cancer * has mets to the spine. * on oral narcotic pain meds. * Also on dexamethasone * #GERD: on PPI #BPH: on flomax DVT prophylaxis; on lovenox Charges/Coding Visit Charges Inpatient E&M: 57061 Subs Hosp L3
[2022-10-06] MEDS: Loperamide 2 MG Capsule PO ×2 (13:58→17:58)
[2022-10-06] MEDS: Tamsulosin HCl 0.4 MG Capsule PO (16:14)
[2022-10-06] MEDS: traZODone 100 MG Tablet PO (20:29)
[2022-10-06] MEDS: Gabapentin 300 MG Capsule PO (20:29)
[2022-10-06] MEDS: Mirtazapine 30 MG Tablet PO (20:55)
[2022-10-07] VITALS (7 sets, daily range): BP systolic 104–133; BP diastolic 74–106; PULSE 88–122; RESP 12–22; TEMP 36.4–36.6; O2SAT 85–98
[2022-10-07] MEDS: LORazepam 1 MG Tablet 2 MG PO ×4 (04:07→22:07)
[2022-10-07] MEDS: oxyCODONE 5 MG Tablet PO ×4 (04:07→19:42)
[2022-10-07 05:35] LABS: Absolute Lymphocyte Count 1.88 X10^3/uL (0.83-4.51); Absolute Neutrophil Count 3.2 X10^3/uL (2.0-7.7); Basophil# 0.03 X10^3/uL; Basophil% 0.5 % (0-1); Eosinophil# 0.13 X10^3/uL; Eosinophils% 2.2 % (0-5); Hematocrit 31.9 % (40-54); Hemoglobin 10.1 g/dL (13.0-16.5); Lymphocyte # 1.88 X10^3/ul (0.83-4.51); Lymphocyte % 32.2 % (19-41); Mean Corp Hgb Conc 31.7 g/dL (32-36); Mean Corpuscular Hgb 31.5 pg (27.0-32.0); Mean Corpuscular Volume 99.4 fL (80-94); Mean Platelet Vol. 8.8 fl (6.2-12.0); Monocyte# 0.45 X10^3/uL; Monocyte% 7.7 % (0-10); NRBC Flagged by Analyzer 0.3 % (0-5); Neutrophil # 3.18 X10^3/uL (2.7-7.7); Neutrophil % 54.7 % (47-70); Platelet Count 218 K/mm3 (150-450); RBC Distribution Width CV 13.5 % (11.6-14.6); RBC Distribution Width SD 49.3 fl (35.1-43.9); Red Blood Count 3.21 M/mm3 (4.6-6.2); White Blood Count 5.8 K/mm3 (4.4-11.0)
[2022-10-07 06:11] LABS: BUN 12 mg/dL (7-18); Creatinine, Serum 0.94 mg/dL (0.70-1.30); Glucose 169 mg/dL (74-106)
[2022-10-07 06:12] LABS: Anion Gap 9 (5-15); BUN/Creat Ratio 12.8 RATIO (10-20); Calcium,Total 8.4 mg/dL (8.5-10.1); Chloride 101 mmol/L (98-107); EST Glomerular Filtration Rate 86 mL/min (>60); Est Glom Filt Rate - Afr Amer 104 mL/min (>60); Potassium 2.9 mmol/L (3.5-5.1); Sodium Level 140 mmol/L (136-145)
[2022-10-07] MEDS: Sucralfate 1 GM Tablet PO ×4 (06:35→22:07)
[2022-10-07] MEDS: Budesonide Respules 0.5 MG/2 ML AMPUL.NEB. INHALATION ×2 (07:36→19:23)
[2022-10-07] MEDS: Albuterol 2.5 MG/3 ML VIAL.NEB. INHALATION (07:36)
--- NOTE | 2022-10-07 07:41 | ECHOD_ITS ---
Reason For Study: ARRYTHMIA Procedure This was a 2D Doppler, Color Flow transthoracic echocardiogram. The study was technically difficult. Patient was uncooperative. Exam performed portable in patient room. Left Ventricle Normal LV size. Left ventricular systolic function is normal. The estimated ejection fraction is 55 %. Stage 1 diastolic dysfunction. No regional wall motion abnormalities noted. Right Ventricle Normal RV size. Normal systolic function. Atria The left atrium is mildly enlarged. Normal right atrium. Mitral Valve Normal mitral valve. Tricuspid Valve Normal tricuspid valve. Aortic Valve Normal aortic valve. Trisinus/trileaflet aortic valve. Pulmonic Valve The pulmonic valve is not well visualized. Great Vessels Normal aortic root. The pulmonary is not well visualized. Normal inferior vena cava. Pericardium/Pleural No pericardial effusion. MMode/2D Measurements & Calculations LAV(MOD-sp4): 49.9 ml LA A4 area: 21.2 cm2 RA A4 area: 18.8 cm2 Time Measurements MV dec time: 0.15 sec Doppler Measurements & Calculations MV E max berny: 40.1 cm/sec Lat Peak E' Berny: 8.2 cm/sec Med Peak E' Berny: 6.0 cm/sec MV A max berny: 63.4 cm/sec E/E' lat: 4.9 E/E' med: 6.6 MV E/A: 0.63 MV dec slope: 380.8 cm/sec2 Ao V2 max: 91.5 cm/sec LV V1 max: 90.9 cm/sec Ao max P.3 mmHg LV V1 max P.3 mmHg Ao V2 mean: 58.1 cm/sec LV V1 mean P.8 mmHg Ao mean P.7 mmHg LV V1 mean: 60.1 cm/sec Ao V2 VTI: 16.5 cm LV V1 VTI: 17.8 cm AV (velocity ratio): 1.1 ECHO/Echo Complete Interpretation Summary Normal LV size. Left ventricular systolic function is normal. The estimated ejection fraction is 55 %. Stage 1 diastolic dysfunction. The left atrium is mildly enlarged. Ordering Physician: Kalpana Hunt Performed By: Wilma Mac RCS
[2022-10-07] MEDS: Folic Acid 1 MG Tablet PO (08:07)
[2022-10-07] MEDS: Pantoprazole Sodium 40 MG Tablet PO (08:07)
[2022-10-07] MEDS: Thiamine Hydrochloride 100 MG Tablet PO (08:07)
[2022-10-07] MEDS: Enoxaparin 40 MG/0.4 ML Syringe SC (08:07)
[2022-10-07] MEDS: Gabapentin 300 MG Capsule PO ×2 (08:07→19:42)
[2022-10-07] MEDS: dexAMETHasone 4 MG Tablet PO (08:07)
[2022-10-07] MEDS: Potassium Chloride Oral Tablet 10 MEQ PO (08:07)
[2022-10-07] MEDS: Furosemide 20 MG Tablet PO (08:07)
[2022-10-07] MEDS: Ondansetron 8 MG Tablet PO (08:07)
[2022-10-07] MEDS: Juven (unflavored) Packet 1 PACKET PO ×2 (08:14→17:06)
[2022-10-07 08:20] LABS: Magnesium 1.4 mg/dL (1.6-2.6)
[2022-10-07] MEDS: Potassium Chloride 10mEq/100mL 10 MEQ/100 ML IV.SOLN. 100 MEQ IV BOLUS ×4 (09:38→12:09)
[2022-10-07] MEDS: Ensure Plus High Protein 120 ML LIQUID PO ×4 (10:18→22:07)
[2022-10-07] MEDS: Menthol/Lanolin/Calamine/Znox 113 GM Tube 1 APPLIC TOPICAL ×2 (10:18→22:07)
--- NOTE | 2022-10-07 10:57 | PN.HOSP_ITS ---
Reason for Visit Reason for Visit: Diagnoses Alcohol use, unspecified with withdrawal delirium (10/03/22) Acquired absence of other specified parts of digestive tract (10/03/22) Subjective Subjective Patient seen and examined. He complains of poorly controlled pain, and says the oxycodone is barely touching his pain; he usually takes higher doses of MS contin at home. He remains tachycardic, and says he thinks it is due to his severe anxiety. He is down to 2L of oxygen. Review of systems is otherwise negative. Objective Data Objective Data Vital Signs: Vital Signs Temp Pulse Resp BP Pulse Ox O2 Del Method O2 Flow Rate 97.9 F 108 H 19 H 127/92 H 97 Nasal Cannula 2 10/07/22 08:30 10/07/22 08:30 10/07/22 08:30 10/07/22 08:30 10/07/22 08:30 10/07/22 09:00 10/07/22 09:00 Oxygen Flow Rate (L/min) 2 Oxygen Delivery Method Nasal Cannula Weight: 171 lb 8 oz Body Mass Index (BMI) 19.8 Intake & Output: Intake and Output for Last 24 Hours 10/05/22 10/06/22 10/07/22 23:59 23:59 23:59 Intake Total 1898.34 / 2098.34 2590.42 / 2890.42 837.67 / 837.67 Output Total 2100 / 2100 550 / 550 Balance -201.66 / -1.66 2040.42 / 2340.42 837.67 / 837.67 Lab / Micro Data Result Diagrams: 10/07/22 05:05 10/07/22 05:05 Labs: Laboratory Results - last 24 hr 10/07/22 05:05: WBC 5.8, RBC 3.21 L, Hgb 10.1 L, Hct 31.9 L, MCV 99.4 H, MCH 31 .5, MCHC 31.7 L, RDW Std Deviation 49.3 H, RDW Coeff of Franci 13.5, Plt Count 218, MPV 8.8, Immature Gran % (Auto) 2.700 H, Neut % (Auto) 54.7, Lymph % (Auto) 32.2, Taliaferro % (Auto) 7.7, Eos % (Auto) 2.2, Baso % (Auto) 0.5, Absolute Neuts (auto) 3.2, Absolute Lymphs (auto) 1.88, Nucleated RBC % 0.3 10/07/22 05:05: Sodium 140, Potassium 2.9 L, Chloride 101, Carbon Dioxide 30.0, Anion Gap 9, BUN 12, Creatinine 0.94, Estim Creat Clear Calc 88.50, Est GFR (MDRD) Af Amer 104, Est GFR (MDRD) Non-Af 86, BUN/Creatinine Ratio 12.8, Glucose 169 H, Calcium 8.4 L 10/07/22 05:05: Magnesium 1.4 L, TSH 0.50 Micro: Microbiology 10/04/22 14:30 Urine, Random Urine Culture - Final Culture exhibits no growth. 10/03/22 23:19 Blood Culture (Wb) - Right Hand Blood Culture - Preliminary No growth in 48 hours. 10/03/22 19:59 Blood Culture (Wb) - Anticubital Right Blood Culture - Preliminary No growth in 48 hours. 10/04/22 03:45 Sputum, Expectorated/Coughed Gram Stain - Final 10/04/22 03:45 Sputum, Expectorated/Coughed Respiratory Culture - Final Escherichia coli Haemophilus influenzae 10/04/22 14:30 Urine, Random Legionella Antigen - Final 10/04/22 14:30 Urine, Random Streptococcus pneumoniae Antigen (M - Final 10/03/22 20:30 Interface Orders Respiratory Panel (PCR) - Final Physical Exam Const alert, oriented x3 and no apparent distress Constitutional Narrative: anxious HEENT head/scalp atraumatic and moist oral mucous membranes Head and Scalp: normocephalic Mouth: oral and palatal mucosa normal Eyes PERRL, EOMs intact bilaterally and conjunctivae normal Neck no lymphadenopathy and supple Resp Resp Narrative: mildly diminished breath sounds bibasally, no wheezes or crackles. On 2L of oxygen. Cardio regular rhythm, S1 normal heart sound, S2 normal heart sound and no murmurs Cardio Narrative: still tachycardic GI normal to inspection, nondistended, normoactive bowel sounds, soft to palpation, non-tender and non-distended Extremity normal to inspection, full ROM and no clubbing, cyanosis or edema Neuro oriented x3, CN's II-XII intact bilaterally, moves all extremities and no focal motor deficits Sensorium / Orientation: awake and alert Motor Exam: strength 5/5 throughout Psych Mood & Affect: anxious Assessment & Plan Assessment/Plan (1) Acute hyperactive alcohol withdrawal delirium: PLAN: Plan #Acute alcohol withdrawal * on alcohol withdrawal protocol with phenobarbital * monitor CIWA score * thiamine, folic acid and multivite * adjunctive meds for symptomatic relief * #Sinus tachycardia * patient remained tachycardic * patient thinks it is due to his severe anxiety * check TSH and 2D echo ordered. #Hyponatremia: resolved. #Hypokalemia: potassium is 2.9 today. Will replace and trend. #Dysphagia * speech therapy on board. * diet modified as per speech therapy recommendations * #Aspiration pneumonia * wbc trended down and normalised * concern for aspiration due to patient vomiting * CXR showed multifocal pneumonia with questionable trace parapneumonic effusion * now down to 2L of oxygen. * will dc IV zosyn today as he will complete a 5 day course of antibiotics today. * breathing treatment with bronchodilators. * aspiration precautions * sputum culture grew E coli and H influenzae. Will continue IV zosyn. * #History of metastatic colon cancer * has mets to the spine. * on oral narcotic pain meds. * Also on dexamethasone * #GERD: on PPI #BPH: on flomax DVT prophylaxis; on lovenox Charges/Coding Visit Charges Inpatient E&M: 08428 Subs Hosp L2
--- NOTE | 2022-10-07 11:44 | CASEMGMT ---
Social Work SW spoke with Nakia at [facility] and updated that addiction counselor does not feel pt will meet qualifications for inpatient alcohol rehab due to medical complexity, but are considering out patient at [facility]. Nakia confirms they are able to accept pt back and that they have transportation available to take pt to outpt appointments if this is decided. Updated clinicals faxed to [place]. Pt awaiting meeting with addiction counselor. Plan: Return to [facility] when medically ready and after seen by addiction counselor ANDRA Burrows
[2022-10-07] MEDS: Ipratropium 0.5 MG/2.5 ML SOLUTION INHALATION ×2 (13:35→19:23)
--- NOTE | 2022-10-07 14:28 | ADDICTION ---
I met with Benito to completed ASAM, AUDIT, DUDIT, MSE and discuss discharge plans. He was difficult to rouse, but then cooperative. We discussed his goals and plans. He wants to get back to [facility] in [place]. He is familiar with [facility] for counseling, as he has been there in the past. We discussed him getting an assessment appointment, but he has a counseling named Jorge L. A PAT was signed for [facility] and I called to set up appointment. I was not able to get through, but gave initial information and gave Benito the phone number for him to schedule.
[2022-10-07] MEDS: Magnesium Sulfate 4gm/100mL 4 GM/100 ML IV.SOLN. IV (14:37)
[2022-10-07] MEDS: Tamsulosin HCl 0.4 MG Capsule PO (17:06)
[2022-10-07] MEDS: Dicyclomine 10 MG Capsule 20 MG PO (20:40)
[2022-10-07] MEDS: traZODone 100 MG Tablet PO (20:40)
[2022-10-07] MEDS: hydrOXYzine PAM 25 MG Capsule 50 MG PO (20:40)
[2022-10-07] MEDS: Mirtazapine 30 MG Tablet PO (22:07)
[2022-10-08] MEDS: LORazepam 2 MG/ML Syringe IV (01:30)
--- NOTE | 2022-10-08 01:30 | NURSING ---
pt c/o severe anxiety, prn ativan given
[2022-10-08 02:00] VITALS: BP 104/75; PULSE 106; RESP 16; TEMP 36.6; O2SAT 94
[2022-10-08] MEDS: oxyCODONE 5 MG Tablet PO ×3 (03:05→13:26)
[2022-10-08] MEDS: Acetaminophen 325 MG Tablet 650 MG PO ×2 (03:06→09:17)
[2022-10-08] MEDS: Ondansetron 8 MG Tablet PO ×2 (03:06→09:18)
[2022-10-08] MEDS: hydrOXYzine PAM 25 MG Capsule 50 MG PO (03:06)
[2022-10-08 04:00] VITALS: BP 115/88; PULSE 100; RESP 12; TEMP 36.9; O2SAT 94
[2022-10-08] MEDS: LORazepam 1 MG Tablet 2 MG PO ×3 (05:32→14:31)
[2022-10-08] MEDS: Sucralfate 1 GM Tablet PO ×3 (05:32→16:10)
[2022-10-08] MEDS: Ipratropium 0.5 MG/2.5 ML SOLUTION INHALATION ×2 (06:57→14:12)
[2022-10-08] MEDS: Budesonide Respules 0.5 MG/2 ML AMPUL.NEB. INHALATION (06:57)
[2022-10-08 06:59] VITALS: PULSE 91; RESP 17; O2SAT 94
[2022-10-08 07:47] LABS: Absolute Lymphocyte Count 1.87 X10^3/uL (0.83-4.51); Basophil# 0.05 X10^3/uL; Basophil% 0.8 % (0-1); Eosinophil# 0.16 X10^3/uL; Eosinophils% 2.7 % (0-5); Hematocrit 29.7 % (40-54); Hemoglobin 9.3 g/dL (13.0-16.5); Lymphocyte # 1.87 X10^3/ul (0.83-4.51); Lymphocyte % 31.4 % (19-41); Mean Corp Hgb Conc 31.3 g/dL (32-36); Mean Corpuscular Hgb 30.6 pg (27.0-32.0); Mean Corpuscular Volume 97.7 fL (80-94); Mean Platelet Vol. 9.1 fl (6.2-12.0); Monocyte# 0.61 X10^3/uL; Monocyte% 10.2 % (0-10); NRBC Flagged by Analyzer 0.3 % (0-5); Neutrophil # 3.02 X10^3/uL (2.7-7.7); Neutrophil % 50.7 % (47-70); Platelet Count 222 K/mm3 (150-450); RBC Distribution Width CV 13.9 % (11.6-14.6); RBC Distribution Width SD 49.1 fl (35.1-43.9); Red Blood Count 3.04 M/mm3 (4.6-6.2)
[2022-10-08 08:41] LABS: Anion Gap 9 (5-15); BUN 12 mg/dL (7-18); BUN/Creat Ratio 14.3 RATIO (10-20); Calcium,Total 8.3 mg/dL (8.5-10.1); Chloride 97 mmol/L (98-107); Creatinine, Serum 0.84 mg/dL (0.70-1.30); EST Glomerular Filtration Rate 98 mL/min (>60); Est Glom Filt Rate - Afr Amer 118 mL/min (>60); Estimated Creatinine Clearance 99.04 ml/min; Glucose 109 mg/dL (74-106); Potassium 3.3 mmol/L (3.5-5.1); Sodium Level 135 mmol/L (136-145)
[2022-10-08 09:01] VITALS: BP 112/83; PULSE 107; RESP 18; TEMP 36.6; O2SAT 97
[2022-10-08] MEDS: Ensure Plus High Protein 120 ML LIQUID PO ×2 (09:16→14:28)
[2022-10-08] MEDS: Enoxaparin 40 MG/0.4 ML Syringe SC (09:16)
[2022-10-08] MEDS: Juven (unflavored) Packet 1 PACKET PO (09:17)
[2022-10-08] MEDS: Thiamine Hydrochloride 100 MG Tablet PO (09:18)
[2022-10-08] MEDS: Folic Acid 1 MG Tablet PO (09:18)
[2022-10-08] MEDS: Furosemide 20 MG Tablet PO (09:18)
[2022-10-08] MEDS: dexAMETHasone 4 MG Tablet PO (09:18)
[2022-10-08] MEDS: Potassium Chloride Oral Tablet 10 MEQ PO (09:18)
[2022-10-08] MEDS: Pantoprazole Sodium 40 MG Tablet PO (09:18)
[2022-10-08] MEDS: Menthol/Lanolin/Calamine/Znox 113 GM Tube 1 APPLIC TOPICAL (09:19)
[2022-10-08] MEDS: Gabapentin 300 MG Capsule PO (13:26)
[2022-10-08 14:12] VITALS: PULSE 98; RESP 18
[2022-10-08 14:24] VITALS: BP 110/79; PULSE 108; RESP 18; TEMP 36.5; O2SAT 91
[2022-10-08] MEDS: BMX LIQUID 180 ML 30 ML PO (14:38)
--- NOTE | 2022-10-08 15:38 | TREXTCAR_ITS ---
Diet Diet Order/Speech Therapy: 10/04/22 10:58 Diet: Regular - General Food consistency:: Regular Liquid Consistency:: Regular/Thin Is pt able to select menu?: No Routine Orders/Code Status Enema Type: Fleetz Enema Frequency: Daily PRN Suppository Type: Dulcolax 10mg Suppository Frequency: Daily PRN O2 Frequency: PRN Keep PO Greater than or Equal to (%): 92 Wound(s) LEFT 2ND TOE: Wound Type: Abrasion BRADLEY ARMS: Wound Type: PINPOINT SCABS TOP RT FOOT: Wound Type: Abrasion COCCYX: Wound Type: Pressure Injury R buttocks: Wound Type: Pressure Injury Therapies Weight Bearing: Weight bearing as tolerated Physical Therapy: Eval and Treat Occupational Therapy: Eval and Treat Problem/Diagnosis (1) Acute hyperactive alcohol withdrawal delirium: Status: Acute Code(s): F10.931 - Alcohol use, unspecified with withdrawal delirium Plan #Acute alcohol withdrawal * on alcohol withdrawal protocol with phenobarbital * monitor CIWA score * thiamine, folic acid and multivite * adjunctive meds for symptomatic relief * #Sinus tachycardia * patient remained tachycardic * patient thinks it is due to his severe anxiety * check TSH and 2D echo ordered. #Hyponatremia: resolved. #Hypokalemia: potassium is 2.9 today. Will replace and trend. #Dysphagia * speech therapy on board. * diet modified as per speech therapy recommendations * #Aspiration pneumonia * wbc trended down and normalised * concern for aspiration due to patient vomiting * CXR showed multifocal pneumonia with questionable trace parapneumonic effusion * now down to 2L of oxygen. * will dc IV zosyn today as he will complete a 5 day course of antibiotics today. * breathing treatment with bronchodilators. * aspiration precautions * sputum culture grew E coli and H influenzae. Will continue IV zosyn. * #History of metastatic colon cancer * has mets to the spine. * on oral narcotic pain meds. * Also on dexamethasone * #GERD: on PPI #BPH: on flomax DVT prophylaxis; on lovenox Allergies/Procedures Done in Hospital Allergies banana Adverse Reaction (Verified 10/03/22 14:59) PT UNSURE OF REACTION cyclobenzaprine [From Flexeril] Adverse Reaction (Verified 10/03/22 14:59) PT UNSURE OF REACTION haloperidol [From Haldol] Adverse Reaction (Verified 10/03/22 14:59) PT UNSURE OF REACTION pecan nut [pecans] Adverse Reaction (Verified 10/03/22 14:59) PT UNSURE OF REACTION walnut [walnuts] Adverse Reaction (Verified 10/03/22 14:59) PT UNSURE OF REACTION Type of Care/Length of Stay Estimated LOS: More Than 30 Days Type of Care Needed: Intermediate Rehab Potential: Fair Prognosis: Fair Additional Orders/Day of Discharge Day of Discharge: 10/08/22 Dietary and Speech Recommendations Dietitian Recommendations/Changes: Continue Regular diet with texture/consistency per [employer] CONSULTANT. Continue 120mL Ensure Plus High Protein 4x daily to provide supplemental energy. Continue Milo BID to promote wound healing. Discharge Plan Admission Admit Date/Time: 10/03/22 18:38 Primary Reason for Your Visit: ASPIRATION PNEUMONIA, ACUTE ALCOHOL WITHDRAWAL Attending Provider: Kalpana Hunt Primary Care Provider: AYANNA FRANCISCO Consulting Providers: Danitza Paz Instructions Patient Instructions: Alcohol Addiction, Dysphagia Aspiration Tx Additional Instructions / Restrictions: FOLLOW UP WITH PCP WITHIN 1-2 WEEKS Discharge Orders/Prescriptions Prescriptions: New oxycodone 10 mg tablet 10 mg PO Q6H PRN (Reason: pain) 5 Days Qty: 20 0RF Continued ondansetron HCl 8 mg Tablet 8 mg PO DAILY potassium chloride 10 mEq Capsule, Extended Release 10 meq PO DAILY omeprazole 40 mg capsule,delayed release(DR/EC) 40 mg PO DAILY tamsulosin 0.4 mg capsule 0.4 mg PO DAILY dexamethasone 4 mg tablet 4 mg PO DAILY furosemide 20 mg tablet 20 mg PO DAILY mirtazapine 30 mg Tablet,Disintegrating 30 mg PO QHS sucralfate 100 mg/mL Suspension 10 ml PO 4X/DAY fluticasone propion-salmeterol [Advair Diskus] 500-50 mcg/dose Blister With Device 1 inh INHALATION BID albuterol sulfate [ProAir HFA] 90 mcg/actuation Hfa Aerosol Inhaler 1 puff INHALATION Q6H PRN PRN (Reason: Shortness Of Breath) Referrals / Follow Up: AYANNA FRANCISCO [Other] NOT,DEFINED [Non-Staff] - Disposition Disposition (needs filled in before D/C Order can be placed): Long Term Facility
--- NOTE | 2022-10-08 15:42 | DS.PCM_ITS ---
Providers Date of Admission: 10/03/22 Date of Discharge: 10/08/22 Primary Care Physician: AYANNA FRANCISCO Consultations 10/03/22 20:58 Consult: Gastroenterology Routine Consulting Provider: [facility] Reason for Consult: GI bleed, hx varices, Etoh Abuse. EMERGENT Consult: No MD Notified: Yes Date Notified: 10/03/22 Time Notified: 21:00 Method of Notification: Verbal Reason For Visit: ETOH DETOX Diagnosis Discharge Diagnosis (1) Acute hyperactive alcohol withdrawal delirium: Status: Acute Code(s): F10.931 - Alcohol use, unspecified with withdrawal delirium Plan #Acute alcohol withdrawal * on alcohol withdrawal protocol with phenobarbital * monitor CIWA score * thiamine, folic acid and multivite * adjunctive meds for symptomatic relief * #Sinus tachycardia * patient remained tachycardic * patient thinks it is due to his severe anxiety * check TSH and 2D echo ordered. #Hyponatremia: resolved. #Hypokalemia: potassium is 2.9 today. Will replace and trend. #Dysphagia * speech therapy on board. * diet modified as per speech therapy recommendations * #Aspiration pneumonia * wbc trended down and normalised * concern for aspiration due to patient vomiting * CXR showed multifocal pneumonia with questionable trace parapneumonic effusion * now down to 2L of oxygen. * will dc IV zosyn today as he will complete a 5 day course of antibiotics today. * breathing treatment with bronchodilators. * aspiration precautions * sputum culture grew E coli and H influenzae. Will continue IV zosyn. * #History of metastatic colon cancer * has mets to the spine. * on oral narcotic pain meds. * Also on dexamethasone * #GERD: on PPI #BPH: on flomax DVT prophylaxis; on lovenox Medications at Discharge Home Medications ondansetron HCl 8 mg tablet 8 mg PO DAILY nausea 10/03/22 albuterol sulfate 90 mcg/actuation aerosol inhaler (ProAir HFA) 1 puff inhalation Q6H PRN PRN Shortness Of Breath 10/04/22 dexamethasone 4 mg tablet 4 mg PO DAILY inflamation 10/04/22 fluticasone 500 mcg-salmeterol 50 mcg/dose blistr powdr for inhalation (Advair Diskus) 1 inh inhalation BID copd 10/04/22 furosemide 20 mg tablet 20 mg PO DAILY water retention 10/04/22 mirtazapine 30 mg disintegrating tablet 30 mg PO QHS sleep/depression 10/04/22 omeprazole 40 mg capsule,delayed release 40 mg PO DAILY stomach 10/04/22 potassium chloride 10 mEq capsule,extended release 10 meq PO DAILY replacement 0 10/04/22 sucralfate 100 mg/mL oral suspension 10 ml PO 4X/DAY stomach 10/04/22 tamsulosin 0.4 mg capsule 0.4 mg PO DAILY bph 10/04/22 oxycodone 10 mg tablet 10 mg PO Q6H PRN pain 5 days #20 tabs 10/08/22 Hospital Course Operations None Procedures None Summary of Care Provided Minutes Spent on Discharge: 55 Hospital Course: Patient is a 61-year-old male with an extensive past medical history as outlined was admitted through the ED on 10/03/2022 for acute alcohol withdrawal. Patient said he drank about 3-1/2 gallons of vodka every day. He had a history of colon cancer with mets to the bone since that he had chronic pain from back. He had been taken off of his pain medications by his pain doctor because he had started drinking again. He felt like he was withdrawing so he came into the ED for acute alcohol withdrawal. Of note, patient was also noted to be having difficulty handing his secretions and there was suspicion for pneumonia. Chest x-ray did show evidence of pneumonia which was thought to be due to aspiration pneumonia in light of his chronic alcohol abuse. He was admitted and managed for acute alcohol withdrawal and aspiration pneumonia with hypoxia due to aspiration pneumonia. He was started on IV Zosyn and placed on alcohol withdrawal protocol with phenobarbital. Sputum cultures grew E. coli and H. influenzae. Patient shortness of breath gradually increasing he was weaned down to 2 L of oxygen which he said was 41 in the senior care. His white cell count was elevated but this subsequently trended down with antibiotics. His withdrawal symptoms also improved on phenobarb and subsequently Ativan was also added on. Speech therapy reviewed him on account of concerns about aspiration. Hospital course was complicated by tachycardia. This was thought to be due to his anxiety as 2D echo showed normal EF of 55%, with yash 1 diastolic dysfunction and mildly enlarged left atrium as well as normal LVSF. TSH was also within normal limits. Patient did much better and improved down to his ba seline. He was discharged to a alf facility on 10/08/2022. He was discharged on p.o. oxycodone 10 mg every 6 hours as needed for total of 5 days with 0 refills. OARRS score was checked with no red flags. He is follow-up with his primary care doctor within 1 to 2 weeks. Patient seen and examined prior to discharge. He had no active complaints and had an uneventful night. Review of symptoms otherwise negative. Labs and vitals reviewed. Home medication reviewed and reconciled. Physical Exam Const alert, oriented x3 and no apparent distress General Appearance: cooperative, comfortable and well kempt Orientation / Consciousness: awake Exam Limitations: no limitations HEENT normocephalic, head/scalp atraumatic, hearing grossly normal bilaterally and moist oral mucous membranes Mouth: oral and palatal mucosa normal Eyes PERRL, EOMs intact bilaterally and conjunctivae normal Neck no lymphadenopathy and supple Resp Resp Narrative: mildly diminished breath sounds bibasally, no wheezes or crackles. On 2L of oxygen. Cardio regular rate, regular rhythm, S1 normal heart sound, S2 normal heart sound and no murmurs Cardio Narrative: still tachycardic GI normal to inspection, nondistended, normoactive bowel sounds, soft to palpation, non-tender and non-distended Extremity normal to inspection, full ROM and no clubbing, cyanosis or edema Skin no rashes or lesions noted Neuro oriented x3, CN's II-XII intact bilaterally, moves all extremities and no focal motor deficits Neuro Narrative: lethargic Sensorium / Orientation: awake and alert Motor Exam: strength 5/5 throughout Psych affect normal Psych Narrative: lethargic Weight / BMI Weight Weight: 171 lb 8 oz Body Mass Index (BMI) 19.8 ABG / Lab / Microbiology Data Result Diagrams: 10/08/22 06:57 10/08/22 06:57 Laboratory: Laboratory Results - last 24 hr 10/08/22 06:57: WBC 6.0, RBC 3.04 L, Hgb 9.3 L, Hct 29.7 L, MCV 97.7 H, MCH 30.6, MCHC 31.3 L, RDW Std Deviation 49.1 H, RDW Coeff of Franci 13.9, Plt Count 222, MPV 9.1, Immature Gran % (Auto) 4.200 H, Neut % (Auto) 50.7, Lymph % (Auto) 31.4, Hitchcock % (Auto) 10.2 H, Eos % (Auto) 2.7, Baso % (Auto) 0.8, Absolute Neuts (auto) 3.0, Absolute Lymphs (auto) 1.87, Nucleated RBC % 0.3 10/08/22 06:57: Sodium 135 L, Potassium 3.3 L, Chloride 97 L, Carbon Dioxide 29.0, Anion Gap 9, BUN 12, Creatinine 0.84, Estim Creat Clear Calc 99.04, Est GFR (MDRD) Af Amer 118, Est GFR (MDRD) Non-Af 98, BUN/Creatinine Ratio 14.3, Glucose 109 H, Calcium 8.3 L Microbiology: Microbiology 10/04/22 14:30 Urine, Random Urine Culture - Final Culture exhibits no growth. 10/03/22 23:19 Blood Culture (Wb) - Right Hand Blood Culture - Preliminary No growth in 48 hours. 10/03/22 19:59 Blood Culture (Wb) - Anticubital Right Blood Culture - Preliminary No growth in 48 hours. 10/04/22 03:45 Sputum, Expectorated/Coughed Gram Stain - Final 10/04/22 03:45 Sputum, Expectorated/Coughed Respiratory Culture - Final Escherichia coli Haemophilus influenzae 10/04/22 14:30 Urine, Random Legionella Antigen - Final 10/04/22 14:30 Urine, Random Streptococcus pneumoniae Antigen (M - Final 10/03/22 20:30 Interface Orders Respiratory Panel (PCR) - Final Meaningful Use Info Meaningful Use Diagnoses (Choose all that apply): None applicable Discharge Plan Admission Admit Date/Time: 10/03/22 18:38 Primary Reason for Your Visit: ASPIRATION PNEUMONIA, ACUTE ALCOHOL WITHDRAWAL Attending Provider: Kalpana Hunt Primary Care Provider: AYANNA FRANCISCO Consulting Providers: Danitza Paz Instructions Patient Instructions: Alcohol Addiction, Dysphagia Aspiration Tx Additional Instructions / Restrictions: FOLLOW UP WITH PCP WITHIN 1-2 WEEKS Discharge Orders/Prescriptions Prescriptions: New oxycodone 10 mg tablet 10 mg PO Q6H PRN (Reason: pain) 5 Days Qty: 20 0RF Continued ondansetron HCl 8 mg Tablet 8 mg PO DAILY potassium chloride 10 mEq Capsule, Extended Release 10 meq PO DAILY omeprazole 40 mg capsule,delayed release(DR/EC) 40 mg PO DAILY tamsulosin 0.4 mg capsule 0.4 mg PO DAILY dexamethasone 4 mg tablet 4 mg PO DAILY furosemide 20 mg tablet 20 mg PO DAILY mirtazapine 30 mg Tablet,Disintegrating 30 mg PO QHS sucralfate 100 mg/mL Suspension 10 ml PO 4X/DAY fluticasone propion-salmeterol [Advair Diskus] 500-50 mcg/dose Blister With Device 1 inh INHALATION BID albuterol sulfate [ProAir HFA] 90 mcg/actuation Hfa Aerosol Inhaler 1 puff INHALATION Q6H PRN PRN (Reason: Shortness Of Breath) Referrals / Follow Up: AYANNA FRANCISCO [Other] NOT,DEFINED [Non-Staff] - Disposition Disposition (needs filled in before D/C Order can be placed): Intermediate Facility Charges/Coding Visit Charges Inpatient E&M: 97059 Disch Hosp >30min
[2022-10-08] MEDS: Potassium Chloride Oral Tablet 20 MEQ 40 MEQ PO (16:10)
--- NOTE | 2022-10-08 16:27 | NURSING ---
transfer summary and med list faxed to [facility]. Sister David harmon pt returning back to facility transportation arranged for [id number] , rn faustino to call report to receiving facility.
--- NOTE | 2022-10-08 16:58 | NURSING ---
Attempted to call report x 2 and no answer or vm available.
--- NOTE | 2022-10-08 18:20 | NURSING ---
Kelly called and I gave report to nurse Marjorie.
== END 2022-10-08 16:45 | disposition skilled nursing facility (03) | DRG 775 ==
LOC: ED 17:34 → MS3 18:13
PROVIDERS: Admitting Provider Family Medicine; Emergency Provider Student in an Organized Health Care Education/Training Program; Visit Provider Student in an Organized Health Care Education/Training Program
DX: F10.231 Alcohol dependence with withdrawal delirium (principal); J69.0 Pneumonitis due to inhalation of food and vomit; E43 Unspecified severe protein-calorie malnutrition; C79.89 Secondary malignant neoplasm of other specified sites; C76.41 Malignant neoplasm of right upper limb; C79.51 Secondary malignant neoplasm of bone; E87.1 Hypo-osmolality and hyponatremia; F17.210 Nicotine dependence, cigarettes, uncomplicated; K21.9 Gastro-esophageal reflux disease without esophagitis; E87.6 Hypokalemia; I10 Essential (primary) hypertension; F41.9 Anxiety disorder, unspecified; Z66 Do not resuscitate; G89.4 Chronic pain syndrome; R73.9 Hyperglycemia, unspecified; Z68.1 Body mass index [BMI] 19.9 or less, adult; R09.02 Hypoxemia; R13.10 Dysphagia, unspecified; N40.0 Benign prostatic hyperplasia without lower urinary tract symptoms; Y90.0 Blood alcohol level of less than 20 mg/100 ml
CPT/HCPCS: 36415; 71046; 80048; 80053; 80307; 81001; 82077; 83036; 83735; 84100; 84145; 84443; 85014; 85018; 85025; 86850; 86900; 86901; 87040; 87070; 87077; 87086; 87186; 87205; 87449; 87633; 87641; 92526; 92610; 93306; 94640; 94668; 97162; 97166; 97530; 99283; J7030; J7050; A4216; J2405